=== PATIENT | female | born 1965 | race Caucasian/White ===

== ENCOUNTER 2019-12-11 09:15 | Outpatient (REF) | payer OTHER, SELFPAY ==
[2019-12-17 11:31] LABS: FIT1 NEGATIVE (NEGATIVE); FIT2 NEGATIVE (NEGATIVE)
[2019-12-17 11:32] LABS: FIT Int Ctl YES
== END 2019-12-11 09:16 ==
LOC: HO.LNP 09:15
PROVIDERS: Visit Provider Internal Medicine Gastroenterology
DX: Z12.11 Encounter for screening for malignant neoplasm of colon (principal)
CPT/HCPCS: 82274

== ENCOUNTER 2019-12-17 08:47 | Outpatient (REF) | payer OTHER, SELFPAY ==
--- NOTE | 2019-12-17 09:01 | US_ITS ---
EXAMINATION: US ABDOMEN COMPLETE CLINICAL INFORMATION: Elevated serum ALT levels. COMPARISON: None. TECHNIQUE: Real-time imaging of the abdominal viscera. FINDINGS: PANCREAS: The head and the body of pancreas is homogeneous in echotexture. The tail is obscured by overlying gas. ABDOMINAL AORTA: The proximal, mid, and distal segments are normal in caliber. INFERIOR VENA CAVA: Visualized portions are normal. LIVER: The liver is normal in size. The liver contour is normal. Parenchymal echogenicity is increased. No focal hepatic lesion. There is no intrahepatic biliary duct dilatation seen. GALLBLADDER: Normal. The gallbladder is physiologically distended without evidence of stones, sludge, polyps, wall thickening or pericholecystic fluid. COMMON BILE DUCT: Normal in caliber measuring 0.4 cm in diameter. RIGHT KIDNEY: Normal. No hydronephrosis. No renal calculi or focal parenchymal lesions. The kidney measures 13.5 cm in maximum dimension. LEFT KIDNEY: Normal. No hydronephrosis. No renal calculi or focal parenchymal lesions. The kidney measures 12.1 cm in maximum dimension. SPLEEN: Normal. The spleen measures 9.9 cm in maximum dimension. FREE FLUID: None. US/US abdomen complete IMPRESSION: Diffuse hepatic echogenicity without any focal lesion. The rest of the abdominal ultrasound is unremarkable.
--- NOTE | 2019-12-17 14:56 | MM_ITS ---
EXAMINATION: MM SCREENING DIGITAL BREAST TOMOSYNTHESIS, BILATERAL CLINICAL INFORMATION: Screening. Asymptomatic. The lifetime risk of breast cancer based on the Tyrer-Cuzick Model is 7.1%. COMPARISON: Mammography: August 02, 2018 and studies dating back to December 09, 2013 TECHNIQUE: Digital breast tomosynthesis is performed in both the craniocaudal and mediolateral oblique views along with computer-aided detection (CAD). Synthesized 2D images are generated from the tomosynthesis. FINDINGS: The breasts are almost entirely fatty (ACR BI-RADS breast composition Category a). There are no significant masses, abnormal calcifications, or other abnormalities. MM/MM tomosynthesis screening BI IMPRESSION: There are no significant changes from prior study. ASSESSMENT: BI-RADS 1: Negative RECOMMENDATION: Routine annual mammography screening. This patient's information was entered into a reminder system with a target due date for their next mammogram.
== END 2019-12-17 08:48 | disposition home or self-care (01) ==
LOC: HO.US 08:47
PROVIDERS: PCP Internal Medicine; Visit Provider Internal Medicine Gastroenterology
DX: R74.01 Elevation of levels of liver transaminase levels (principal)
CPT/HCPCS: 76700; 77063; 77067

== ENCOUNTER → 2019-12-25 13:33 | Outpatient (BNVA) | payer OTHER, SELFPAY | PROVIDERS: PCP Internal Medicine; Referring Provider Internal Medicine; Visit Provider Internal Medicine Gastroenterology | DX: Z76.89 Persons encountering health services in other specified circumstances (principal) ==

== ENCOUNTER 2020-05-22 08:00 | Outpatient (RCR) | payer OTHER, SELFPAY ==
--- NOTE | 2020-03-16 08:36 | MHC.PT.EP ---
[facility] [place] Office [place] Office [place] Office [address] Elvira Concepcion [address] [phone] F: [phone] F: [phone] F: [phone] F: [phone] Physical Therapy Plan of Care Date of Evaluation: 03/16/20 Date of Surgery: None Diagnosis: Strain of Left Thigh Assessment: Pt is a 54 y.o.f with chief complaint of (L) anterior hip pain with pain radiating into knee and buttock. Pt reports prior incidence of similar pain that improved with no physical therapy in past. Pt presents today with decreased hip ROM, strength deficits, postural/gait abnormalities, TTP L anterior/posterior hip, and (+) special testing. Pt abnormalities during gait and functional movement are likely due to weakness within gluteal musculature and tightness of hip flexors. Pt sxs are consistent with muscular strain further impacted by hip weakness causing pain with repetitive and functional movements. 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 Manual therapy to restore motion and function. Therapeutic exercise to improve strength and flexibility. Neuromuscular re-education for posture and balance. Therapeutic activities to return to functional activities of daily living. Electronically signed by: Lulú Pena PT Please sign and return to therapist. Thank you for your referral.
--- NOTE | 2020-05-28 12:23 | MHC.PT.DC ---
[facility] [place] Office [place] Office [place] Office [address] Elvira Concepcion [address] [facility] [phone] F: [phone] F: [phone] F: [phone] F: [phone] Physical Therapy Discharge Report Diagnosis: Strain of Left Thigh Date of Surgery: None Date of Evaluation: 03/16/20 Date of Discharge: 05/28/20 Treatments to Date: 19 Cancellations to Date: 0 No Shows to Date: 0 Discharge Status: Achieved Goals Improved Function Independent with HEP Discharge Summary: Pt progressed well over the course of skilled PT making progress on impairments and functional limitations resulting in an improved quality of life. Pt is I with HEP and appropriate to d/c to HEP at this time. LEFS 61/80 Electronically signed by: Lulú Pena PT Please sign and return to therapist. Thank you for your referral.
== END 2020-05-28 12:24 | disposition home or self-care (01) ==
LOC: HO.PTCHIC 08:00
PROVIDERS: PCP Internal Medicine; Visit Provider Internal Medicine
DX: S76.212D Strain of adductor muscle, fascia and tendon of left thigh, subsequent encounter (principal)
CPT/HCPCS: 97110; 97112; 97140; 97161; 97530

== ENCOUNTER 2020-06-02 14:20 | Outpatient (REF) | payer OTHER, SELFPAY ==
--- NOTE | ~2020-06-02 | XR_ITS ---
EXAMINATION: XR BILATERAL HIPS WITH AP PELVIS CLINICAL INFORMATION: Bilateral hip pain. COMPARISON: None TECHNIQUE: AP view of the pelvis as well as AP and frog-leg lateral views of the right and left hip. FINDINGS: No acute fracture or dislocation. Mild bilateral hip joint space narrowing with small marginal osteophytes. No osseous erosion. Phleboliths within the pelvis. XR/XR hip BI w [id number] IMPRESSION: Mild right and left hip osteoarthritis.
== END 2020-06-02 14:21 | disposition home or self-care (01) ==
LOC: HO.HMGCX 14:20
PROVIDERS: PCP Internal Medicine; Visit Provider Internal Medicine
DX: M25.551 Pain in right hip (principal); M25.552 Pain in left hip
CPT/HCPCS: 73521

== ENCOUNTER 2020-06-04 07:52 | Outpatient (REF) | payer OTHER, SELFPAY ==
[2020-06-04 11:48] LABS: Alanine Aminotransferase 27 U/L (0-31); Anion Gap 13 (12-20); Aspartate Amino Transferase 18 U/L (5-31); Blood Urea Nitrogen 17 mg/dL (9-16); Calcium 9.2 mg/dL (8.4-10.2); Carbon Dioxide 27 mmol/L (22-29); Chloride 105 mmol/L (96-108); Cholesterol 210 mg/dL; Estimated Glomerular Filt Rate > 60; Glucose Fasting 105 mg/dL (60-99); HDL Cholesterol 60 mg/dL; LDL Cholesterol Calculated 121 mg/dl; Potassium 4.5 mmol/L (3.3-5.1); Sodium 140 mmol/L (135-145); Triglycerides 145 mg/dL
[2020-06-04 12:03] LABS: TSH reflex Free T4 1.32 uIU/mL (0.32-4.0); Vitamin D 25-OH Total 28.6 ng/mL (>30)
== END 2020-06-04 07:53 | disposition home or self-care (01) ==
LOC: HO.HMGCLDS 07:52
PROVIDERS: PCP Internal Medicine; Visit Provider Internal Medicine
DX: Z00.01 Encounter for general adult medical examination with abnormal findings (principal); F32.9 Major depressive disorder, single episode, unspecified; I10 Essential (primary) hypertension; E89.40 Asymptomatic postprocedural ovarian failure
CPT/HCPCS: 36415; 80048; 80061; 82306; 84443; 84450; 84460

== ENCOUNTER → 2020-12-21 13:13 | Outpatient (BNVA) | payer OTHER, SELFPAY | PROVIDERS: PCP Internal Medicine; Referring Provider Internal Medicine; Visit Provider Nurse Practitioner ==

== ENCOUNTER 2021-01-26 07:58 | Outpatient (REF) | payer OTHER, SELFPAY ==
--- NOTE | ~2021-01-26 | US_ITS ---
EXAMINATION: US ABDOMEN COMPLETE CLINICAL INFORMATION: Left lower quadrant pain, elevated ALT; gastroesophageal reflux disease.. COMPARISON: Ultrasound abdomen complete dated 12/17/2019. TECHNIQUE: Real-time imaging of the abdominal viscera. FINDINGS: PANCREAS: Normal. The visualized pancreatic head and body are normal in appearance. The remainder of the pancreas is obscured from visualization by the overlying bowel gas. ABDOMINAL AORTA: The proximal, mid, and distal segments are normal in caliber. INFERIOR VENA CAVA: Visualized portions are normal. LIVER: There is diffuse increased liver parenchymal echogenicity. No focal hepatic mass is seen. The liver is normal in size and contour. No biliary ductal dilatation. GALLBLADDER: Normal. The gallbladder is physiologically distended without evidence of stones, sludge, polyps, wall thickening or pericholecystic fluid. COMMON BILE DUCT: Normal in caliber measuring 0.4 cm in diameter. RIGHT KIDNEY: Normal. No hydronephrosis. No renal calculi or focal parenchymal lesions. The kidney measures 12.6 cm in maximum dimension. LEFT KIDNEY: Normal. No hydronephrosis. No renal calculi or focal parenchymal lesions. The kidney measures 12.2 cm in maximum dimension. SPLEEN: Normal. The spleen measures 9.5 cm in maximum dimension. FREE FLUID: None. US/US abdomen complete IMPRESSION: There is generalized increase in hepatic echotexture, consistent with fatty infiltration or hepatocellular disease. Please correlate clinically. No focal hepatic mass or intrahepatic biliary dilatation is seen.
== END 2021-01-26 07:59 | disposition home or self-care (01) ==
LOC: HO.US 07:58
PROVIDERS: PCP Internal Medicine; Visit Provider Nurse Practitioner
DX: R10.32 Left lower quadrant pain (principal)
CPT/HCPCS: 76700

== ENCOUNTER → 2021-02-02 14:39 | Outpatient (BNVA) | payer OTHER, SELFPAY | PROVIDERS: PCP Internal Medicine; Referring Provider Internal Medicine; Visit Provider Nurse Practitioner ==

== ENCOUNTER 2021-06-16 11:32 | Outpatient (REF) | payer OTHER, SELFPAY ==
--- NOTE | ~2021-06-16 | MM_ITS ---
EXAMINATION: MM SCREENING DIGITAL BREAST TOMOSYNTHESIS, BILATERAL CLINICAL INFORMATION: Screening. Asymptomatic. The lifetime risk of breast cancer based on the Tyrer-Cuzick Model is 8%. COMPARISON: Mammography: 12/17/2019, 08/02/2018, 12/02/2015, 12/11/2013, 12/09/2013 TECHNIQUE: Digital breast tomosynthesis is performed in both the craniocaudal and mediolateral oblique views along with computer-aided detection (CAD). Synthesized 2D images are generated from the tomosynthesis. FINDINGS: The breasts are almost entirely fatty (ACR BI-RADS breast composition Category a). Background stromal and fibroglandular densities are stable. No mass or architectural abnormality or abnormal calcifications. There is a small dermal lesion again seen overlying the inferior right breast on MLO view, previously marked with dermal marker on 12/11/2013. Neither breast shows abnormal calcifications. The axilla are unremarkable. MM/MM tomosynthesis screening BI IMPRESSION: -No mammographic evidence of malignancy. -Old dermal lesion overlying anterior inferior right breast on MLO view. ASSESSMENT: BI-RADS 2: Benign RECOMMENDATION: Routine annual mammography screening. This patient's information was entered into a reminder system with a target due date for their next mammogram.
== END 2021-06-16 11:33 | disposition home or self-care (01) ==
LOC: HO.MAMMO 11:32
PROVIDERS: Visit Provider Internal Medicine
DX: Z12.31 Encounter for screening mammogram for malignant neoplasm of breast (principal)
CPT/HCPCS: 77063; 77067

== ENCOUNTER 2021-07-07 13:55 | Outpatient (REF) | payer OTHER, SELFPAY ==
[2021-07-07 14:41] LABS: Influenza A PCR NEGATIVE (Negative); Influenza B PCR NEGATIVE (Negative); Resp Syncy Virus RNA Qual PCR NEGATIVE (Negative); SARS COV2 PCR INHOUSE NEGATIVE (Negative)
== END 2021-07-07 13:56 | disposition home or self-care (01) ==
LOC: HO.LNP 13:55
PROVIDERS: Visit Provider Emergency Medicine
DX: Z20.822 Contact with and (suspected) exposure to COVID-19 (principal); R68.89 Other general symptoms and signs
CPT/HCPCS: 0241U

== ENCOUNTER 2021-07-19 08:33 | Emergency (ER) | payer OTHER, SELFPAY ==
--- NOTE | ~2021-07-19 | CT_ITS ---
EXAMINATION: CT SOFT TISSUE NECK WITHOUT CONTRAST CLINICAL INFORMATION: Inability to swallow while. Pain COMPARISON: None TECHNIQUE: Helical imaging was performed in the axial plane with generation of coronal and sagittal reformatted images. This CT examination was performed using dose optimization techniques as appropriate, variously including the following: *Automated exposure control *Adjustment of mA and/or kV according to patient size (this includes techniques or standardized protocols for targeted exams where dose is matched to indication/reason for exam; i.e. extremities or head) *Use of iterative reconstruction technique DLP: 751 mGy-cm FINDINGS: The oropharynx and oral cavity exam is limited in evaluation secondary to the exam due to dental amalgam related artifact. There is a soft tissue mass or thickening of the right tonsils with no hypodensity seen to suspect any abscess. The mass measures approximately 2.8 x 1.8 cm on axial image 40/2. The mass extends to the base of the tongue with lack of separation. The peritonsillar fat planes are maintained normal. However limited The left tonsillar pillar is normal. There are numerous lymph nodes seen throughout the anterior and posterior neck the largest lymph node measures 1.5 cm level 3 right neck and 1.5 cm left neck on coronal image 46/4 The parotid glands are homogeneous in attenuation. The submandibular glands are normal. No contour abnormality or pathologic enhancement is seen within the oral cavity or pharyngeal mucosal space. The laryngeal structures are normal. The parapharyngeal fat is preserved. The carotid sheath vasculature opacify normally. No extra mucosal soft tissue mass or fluid collection is seen. No retropharyngeal fluid collection is seen. The thyroid gland is normal. The superior mediastinum is unremarkable. The lung apices are clear. The mastoid air cells and visualized portions of the paranasal sinuses are well-aerated. The temporomandibular joints are normal. No periapical disease is identified. No osseous abnormalities are seen. The imaged portions of the brain parenchyma are unremarkable. CT/CT soft tissue neck wo con IMPRESSION: There is a soft tissue mass in the right tonsillar pillar and the right base of the tongue inseparable. Exact origin not known. There is however no hypodensity or gas seen to suspect any peritonsillar abscess. There is bilateral numerous neck lymph nodes level 2 and 3 which appear abnormal. Consider ENT workup and if clinically indicated an MRI for further evaluation. Rest of the visualized soft tissue neck is unremarkable.
[2021-07-19 08:36] VITALS: BP 154/76; PULSE 88; RESP 20; TEMP 36.6; O2SAT 96; BMI 43.0
--- NOTE | 2021-07-19 08:44 | ED.GENADULT ---
HPI - General Adult General Chief complaint: General Medical Stated complaint: sore throat, lock jaw Time Seen by Provider: 07/19/21 08:44 Source: patient Mode of arrival: ambulatory Limitations: no limitations History of Present Illness HPI narrative: Patient is a 55 year old female presenting to the emergency department today with a sore throat and jaw. Patient states that for the last few weeks she has had increased difficulty swallowing, a sore throat, and a sore jaw. Patient states that at baseline, she has a history of dysphasia but it seems to be worse lately. Patient states that she does have a GI provider but she has not seen his for this new issue. Patient states she was seen at an urgent care for this a week ago and was given a steroid and a muscle relaxer but neither seemed to help. Patient denies any dizziness, lightheadedness, abdominal pain, nausea, vomiting, fever, chills, blurry vision, double vision, loss of vision, chest pain, difficulty breathing, shortness of breath, back pain, night sweats, pain with urination, increased urinary frequency, increased urinary urgency, blood in her urine or stool, syncope or a near syncopal episode, recent trauma or falls, bowel incontinence, bladder incontinence, bowel retention, bladder retention, or any other complaints at this time. Onset (ago): week(s) Radiation: non-radiation Severity: mild Severity scale (1-10): 2 Quality: dull Pain Consistency: constant Relieving factors: none Exacerbating factors: none Associated symptoms: denies other symptoms Treatments prior to arrival: none Related Data Home Medications Medication Instructions Recorded Confirmed aspirin 81 mg tablet,delayed 81 mg PO DAILY 12/25/19 05/26/20 release COVID-19 vacc,mRNA([employer])(PF) 30 0.3 ml IM DIRECTED 02/25/20 05/26/20 mcg/0.3 mL IM susp (purple) escitalopram oxalate 10 mg tablet 20 mg PO DAILY tab 05/26/20 05/26/20 cholecalciferol (vitamin D3) 125 125 mcg PO DAILY 12/21/20 mcg (5,000 unit) capsule Previous Rx's Medication Instructions Recorded trazodone 50 mg tablet 50 mg PO BEDTIME PRN #30 tab 03/16/20 famotidine 10 mg tablet (Acid 40 mg PO BEDTIME 30 Days #120 tab 12/21/20 Digital Sales Representative (famotidine)) amlodipine 2.5 mg tablet 2.5 mg PO DAILY #90 tab 01/14/21 lisinopril 10 mg tablet 10 mg PO DAILY #90 tab 02/15/21 diclofenac sodium 1 % topical gel 2 g TOPICAL QID #100 g 06/02/21 azithromycin 250 mg tablet See Rx Instructions PO .COMPLEX #6 07/14/21 tab meloxicam 15 mg tablet 15 mg PO DAILY #14 tab 07/14/21 Allergies Allergy/AdvReac Type Severity Reaction Status Date / Time amoxicillin [AMOXICILLIN] Allergy Intermediate VOMITING/DIARRHEA, Verified 07/14/21 14:08 diarrhea/vomiting latex [LATEX] Allergy Intermediate HIVES Verified 07/14/21 14:08 sulfamethoxazole Allergy Intermediate HIVES Verified 07/14/21 14:08 [From BACTRIM] Doxycycline Hyclate Allergy Unknown hives and Verified 07/14/21 14:08 tingling Review of Systems Constitutional: Constitutional: Reports no additional constitutional complaints, Denies chills, Denies fever(s) and Denies night sweats Eyes: Eyes: Reports no additional eye complaints, Denies blurry vision, Denies change in vision, Denies diplopia, Denies eye discharge, Denies loss of vision and Denies eye pain ENT: Denies dizziness and Reports sore throat Comments: jaw pain Cardiovascular: Cardiovascular: Reports no additional cardiovascular complaints, Denies chest pain, Denies lightheadedness, Denies Loss of Consciousness and Denies dyspnea Respiratory: Respiratory: Reports no additional respiratory complaints and Denies dyspnea Gastrointestinal: Gastrointestinal: Reports no additional gastrointestinal complaints, Denies abdominal pain, Denies melena, Denies hematochezia, Denies change in bowel habits and Denies change in stool character Genitourinary: Genitourinary: Denies hematuria, Denies urinary frequency, Denies dysuria, Denies urinary incontinence, Denies urinary hesitancy and Denies urinary urgency Musculoskeletal: Musculoskeletal: Reports no additional musculoskeletal complaints, Denies numbness and Denies tingling Neurologic: Denies dizziness, Denies loss of vision, Denies numbness and Denies tingling Psychiatric: Psychiatric: Reports no additional psychiatric complaints Endocrine: Endocrine: Reports no additional endocrine complaints Hematologic/Lymphatic: Hematologic/Lymphatic: Reports no additional hematologic/lymphatic complaints Allergic/Immunologic: Allergic/Immunologic: Reports no additional allergic/immunologic complaints PMFSH Past Medical History Attestation statement: The following information was validated with the patient. Source: old records reviewed Medical History COVID-19 Depression Depression, major, recurrent, in partial remission Essential hypertension Strain of left inguinal region Surgical menopause Surgical History History of History of colonoscopy History of hysterectomy Status post endometrial ablation Family History Family History Father Hx of diabetes insipidus Hx of skin cancer, basal cell Mental health disorder Mother Family history of high blood pressure Son Substance use disorder Mental health disorder Maternal Grandmother No problems noted. Maternal Uncle Mental health disorder Social History Social History Housing: House Alcohol intake: current Alcohol intake frequency: holidays/special occasions only Alcohol type: beer Patient Tobacco Use Status: Never used Tobacco e-Cigarette/Vaping Use: Never Used Advance Directives: No Advance Directives Information Provided: Yes service: No Current occupational status: employed Cognitive needs: No Hearing needs: No Vision needs: No Physical Exam ED Vital Signs: Vital Signs - 24 hr 07/19/21 08:36 Temperature 97.9 F Pulse Rate 88 Respiratory Rate 20 Blood Pressure 154/76 H Pulse Oximetry 96 BMI result Body Mass Index 43.0 Const General: cooperative, no acute distress, alert and awake Nutritional Appearance: well nourished Orientation/consciousness: patient oriented x3 Limitations: no limitations [facility] Head: Yes normal to inspection and Yes atraumatic Ears: hearing grossly normal bilaterally and external ears normal General nose exam: Normal external nose present, no nasal discharge noted and no epistaxis Face and sinus: Yes normal facial exam, No abrasion and No laceration Mouth: Normal oral and palatal mucosa present, no drooling and no muffled voice Eyes General: appearance normal, both eyes and all related structures Periorbital: periorbital findings normal Eyelids: Yes eyelids normal Conjunctivae: conjunctivae normal Pupils: Equal, round and reactive pupils present EOM: EOMs intact bilaterally Neck Neck: Yes normal visual inspection, Yes full ROM and Yes no lymphadenopathy Chest Chest palpation & inspection: normal inspection of the chest Resp Effort & Inspection: normal respiratory effort and able to speak in complete sentences Auscultation: clear to auscultation bilaterally Cardio Rate: regular rate Rhythm: regular rhythm GI Inspection: Yes normal to inspection Neuro General: patient oriented x3 and moves all extremities Cranial nerves: Yes Equal, round and reactive pupils present Cognition (Neuro): normal cognition Motor exam (neuro): 5/5 motor strength present throughout Sensory Exam: Normal double simultaneous stimulation for sensation Coordination: [id number] test normal Extrem General: Yes normal to inspection, Yes full ROM and Yes capillary refill normal Psych Appearance: grossly normal Mental Status: mental status grossly normal Affect: normal affect Attitude: cooperative Thought process: Normal thought process present Thought content: Normal thought content present Insight: Good insight present (Psych) Medical Decision Making MDM Narrative Medical decision making narrative: Patient is a 55 year old female presenting to the emergency department today with jaw pain and decreased ability to swallow. Patient's physical exam was unremarkable. Patient's CT soft tissue of the neck showed a mass at the base of the tongue. Patient had a patent, intact, airway and was able to tolerate PO fluids while in the department. I explained my physical exam findings as well as all test results to the patient. I answered all questions asked by the patient. I stressed the importance of the patient taking her medication as prescribed. I stressed the importance of the patient following up with her] primary care provider and an ENT specialist, as soon as possible. I stressed the importance of the patient returning to the emergency department immediately if her symptoms were to worsen or if she were to develop any dizziness, shortness of breath, difficulty breathing, chest pain, blurry vision, loss of vision, nausea, vomiting, abdominal pain, fever, chills, back pain, or any other complaints. Patient verbalized agreement and understanding with this treatment plan and discharge. Differential Diagnosis Differential Diagnosis: esophageal mass, tongue mass, chronic dysphasia Medical Records Medical records reviewed: Yes I reviewed the patient's medical records. Imaging Data CT Soft tissue neck: Attestation: I personally reviewed and interpreted this imaging study as follows: My impression: Mass at the base of the tongue. Radiologist's impression: EXAMINATION: CT SOFT TISSUE NECK WITHOUT CONTRAST CLINICAL INFORMATION: Inability to swallow while. Pain? COMPARISON: None? TECHNIQUE: Helical imaging was performed in the axial plane with generation of coronal and sagittal reformatted images. This CT examination was performed using dose optimization techniques as appropriate, variously including the following: *Automated exposure control *Adjustment of mA and/or kV according to patient size (this includes techniques or standardized protocols for targeted exams where dose is matched to indication/reason for exam; i.e. extremities or head) *Use of iterative reconstruction technique DLP: 751 mGy-cm FINDINGS: The oropharynx and oral cavity exam is limited in evaluation secondary to the exam due to dental amalgam related artifact. There is a soft tissue mass or thickening of the right tonsils with no hypodensity seen to suspect any abscess. The mass measures approximately 2.8 x 1.8 cm on axial image 40/2. The mass extends to the base of the tongue with lack of separation. The peritonsillar fat planes are maintained normal. However limited The left tonsillar pillar is normal. There are numerous lymph nodes seen throughout the anterior and posterior neck the largest lymph node measures 1.5 cm level 3 right neck and 1.5 cm left neck on coronal image 46/4 The parotid glands are homogeneous in attenuation. The submandibular glands are normal. No contour abnormality or pathologic enhancement is seen within the oral cavity or pharyngeal mucosal space. The laryngeal structures are normal. The parapharyngeal fat is preserved. The carotid sheath vasculature opacify normally. No extra mucosal soft tissue mass or fluid collection is seen. No retropharyngeal fluid collection is seen. The thyroid gland is normal. The superior mediastinum is unremarkable. The lung apices are clear. The mastoid air cells and visualized portions of the paranasal sinuses are well-aerated. The temporomandibular joints are normal. No periapical disease is identified. No osseous abnormalities are seen. The imaged portions of the brain parenchyma are unremarkable. CT/CT soft tissue neck wo con IMPRESSION: There is a soft tissue mass in the right tonsillar pillar and the right base of the tongue inseparable. Exact origin not known. There is however no hypodensity or gas seen to suspect any peritonsillar abscess. There is bilateral numerous neck lymph nodes level 2 and 3 which appear abnormal. Consider ENT workup and if clinically indicated an MRI for further evaluation. ? Rest of the visualized soft tissue neck is unremarkable. Dictated By: Sb Mckeon MD Signed By: Electronically signed by Sb Mckeon MD 07/19/21 0937 Discharge Plan Discharge Clinical Impression: Mass of tongue Patient Disposition: Home, Self-Care Additional Instructions: Follow up with your primary care provider. Follow up with an ENT specialist, as soon as possible. Return to the emergency department immediately if your symptoms worsen or if you develop any dizziness, shortness of breath, difficulty breathing, chest pain, blurry vision, loss of vision, nausea, vomiting, abdominal pain, fever, chills, back pain, or any other complaints. Prescriptions: No Action trazodone 50 mg tablet 50 mg PO BEDTIME PRN (Reason: for insomnia) Qty: 30 0RF amlodipine 2.5 mg tablet 2.5 mg PO DAILY Qty: 90 3RF lisinopril 10 mg tablet 10 mg PO DAILY Qty: 90 3RF Pfizer COVID-19 Vaccine (EUA) 30 mcg/0.3 mL suspension for reconstitution 0.3 ml IM DIRECTED 0RF escitalopram oxalate 10 mg tablet 20 mg PO DAILY 0RF diclofenac sodium 1 % gel 2 g topical QID Qty: 100 1RF Rx Instructions: apply to single elbow, wrist or hand; for hand includes palm/fingers/back of hand azithromycin 250 mg tablet See Rx Instructions PO .COMPLEX Qty: 6 0RF Rx Instructions: take 500 mg today (day 1), then 250 mg for 4 days (days 2-5) PO meloxicam 15 mg tablet 15 mg PO DAILY Qty: 14 0RF aspirin 81 mg tablet,delayed release (DR/EC) 81 mg PO DAILY 0RF cholecalciferol (vitamin D3) 125 mcg (5,000 unit) capsule 125 mcg PO DAILY 0RF famotidine [Acid Digital Sales Representative (famotidine)] 10 mg tablet 40 mg PO BEDTIME 30 Days Qty: 120 6RF Referrals: [facility] [Provider Group] Shefali Billings MD [Primary Care Provider] - Stand Alone Forms: Work/School Release Interventions: ED Discharge Assessment Last Done: 07/19/21 10:04 Discharge Date/Time: 07/19/21 10:05 Print Language: Swiss
== END 2021-07-19 10:05 | disposition home or self-care (01) ==
PROVIDERS: Emergency Provider Student in an Organized Health Care Education/Training Program; PCP Internal Medicine
DX: K14.8 Other diseases of tongue (principal); I10 Essential (primary) hypertension; Z79.82 Long term (current) use of aspirin
CPT/HCPCS: 70490; 99282; 99284

== ENCOUNTER 2021-08-13 08:00 | Outpatient (RCR) | payer OTHER, SELFPAY ==
--- NOTE | 2021-07-15 13:21 | MHC.PT.EP ---
[facility] [place] Office [place] Office [place] Office [address] Elvira Concepcion [address] [phone] F: [phone] F: [phone] F: [phone] F: [phone] Physical Therapy Plan of Care Date of Evaluation: Date of Surgery: Diagnosis: Unspecified strain of L ankle/ foot. Assessment: Pt is a 55 y/o female referred to PT for eval and treat of unspecified sprain of L ankle who presents with signs and sx consistent with L ankle dysfunction resulting in decreased tolerance and ability to perform ambulatory and standing tasks for duration, performing fitness activities as well as descending stairs, negotiating uneven terrain and inclines, and ache at night secondary to decreased B hip and L ankle strength, mild L ankle inversion hypermobility as well as L > R ankle pronation, gait abnormality and pain. Pt is deemed an appropriate candidate to receive skilled PT in order to address her physical limitations to improve her functional ability. Frequency and Duration: The patient will be seen 2 x / wk x 5 wks. Short Term Goals: Initiate HEP with evidence of compliance. improve baseline pain to < 4/10; initial: 6/10. Vp Compliance Goals: I with HEP. Descends stairs with reciprocal fashion; initial: inconsistent Pt will be able to walk 1 mile with managed Sx; initial: moderate difficulty. Improve L ankle inversion MMT by at least 1/2 MMT grade. Treatment Plan: Modalities to reduce pain, spasms and effusion. Manual therapy to restore motion and function. Therapeutic exercise to improve strength and flexibility. Neuromuscular re-education for posture and balance. Therapeutic activities to return to functional activities of daily living. Electronically signed by: Manuel Martinez PT. Please sign and return to therapist. Thank you for your referral.
--- NOTE | 2021-08-13 13:37 | MHC.PT.DC ---
[facility] [place] Office [place] Office [place] Office [address] Elvira Concepcion [address] [phone] F: [phone] F: [phone] F: [phone] F: [phone] Physical Therapy Discharge Report Diagnosis: Unspecified strain of L ankle/ foot. Date of Surgery: Date of Evaluation: 07/15/21 Date of Discharge: Treatments to Date: 9 Cancellations to Date: No Shows to Date: Discharge Status: Discharge Summary: Bernice has been an active participant in her therapy in and out of the clinic. She persists with mild soreness at the end of a long day though has met her therapeutic goals, is I with her HEP and in agreement with DC today. Electronically signed by: Please sign and return to therapist. Thank you for your referral.
== END 2021-08-13 13:37 | disposition home or self-care (01) ==
LOC: HO.PTCHIC 08:00
PROVIDERS: PCP Internal Medicine; Visit Provider Internal Medicine
DX: S96.912A Strain of unspecified muscle and tendon at ankle and foot level, left foot, initial encounter (principal)
CPT/HCPCS: 97110; 97112; 97140; 97161

== ENCOUNTER 2021-11-07 15:16 | Emergency (ER) | payer OTHER, SELFPAY ==
[2021-11-07 17:10] VITALS: BP 188/72; PULSE 83; RESP 18; TEMP 37.2; O2SAT 98; BMI 42.0
[2021-11-07 19:06] LABS: MANUAL DIFF FLAG NO
[2021-11-07 19:08] LABS: Basophils Absolute Auto 0.1 X10*3/uL (0.0-0.2); Basophils Percent Auto 0.9 % (0-2); Eosinophils Absolute Auto 0.3 X10*3/uL (0.0-0.4); Eosinophils Percent Auto 2.8 % (0-4); Hematocrit 40.8 % (37.0-47.0); Hemoglobin 13.3 g/dl (12.0-16.0); Imm Gran Abs Auto 0.04 X10*3/uL (0.00-0.03); Imm Gran Pct Auto 0.5 % (0.0-0.4); Lymphocytes Absolute Auto 2.5 X10*3/uL (1.2-4.9); Lymphocytes Percent Auto 27.8 % (20-40); Mean Corpuscular HGB Conc 32.6 g/dl (31.0-35.0); Mean Corpuscular Hemoglobin 29.3 pg (27.0-33.0); Mean Corpuscular Volume 89.9 fL (80.0-98.0); Monocytes Absolute Auto 0.7 X10*3/uL (0.1-1.2); Monocytes Percent Auto 7.7 % (2-11); Neutrophils Absolute Auto 5.3 x10*3/uL (2.0-8.3); Neutrophils Percent Auto 60.3 % (45-73); Platelet Count 362 X10*3/uL (160-400); Red Blood Count 4.54 X10*6/uL (4.20-5.50); Red Cell Distribution Width 13.5 % (11.0-16.0); White Blood Count 8.8 X10*3/uL (4.8-10.8)
[2021-11-07 19:22] LABS: Alanine Aminotransferase 32 U/L (0-31); Albumin Level 4.6 g/dL (3.5-5.0); Alkaline Phosphatase 97 U/L (39-117); Anion Gap 17 (12-20); Aspartate Amino Transferase 21 U/L (5-31); Bilirubin Total 0.4 mg/dL (0.0-1.0); Blood Urea Nitrogen 15 mg/dL (9-16); Calcium 9.9 mg/dL (8.4-10.2); Carbon Dioxide 24 mmol/L (22-29); Chloride 103 mmol/L (96-108); Creatinine Clr Calc Pharmacy 92.1; Estimated Glomerular Filt Rate > 60; Glucose Random 123 mg/dL (60-115); Potassium 4.2 mmol/L (3.3-5.1); Sodium 140 mmol/L (135-145); Total Protein 7.4 g/dL (6.5-8.0)
[2021-11-07 19:27] LABS: Troponin-I High Sensitivity < 3.5 ng/L (<3.5-17.0)
--- NOTE | 2021-11-08 02:53 | ED_ITS ---
HPI - General Adult General Chief complaint: Abdominal Pain Stated complaint: Mid back pain Time Seen by Provider: 11/07/21 17:13 Source: patient Mode of arrival: ambulatory History of Present Illness HPI narrative: 56-year-old female presents with complaints of mid right back pain that started Monday morning it is sharp in nature and radiates around in a dermatomal distribution and she states that she has had shingles previously and the presentation was similar to this. She denies any fever or chills. Related Data Home Medications Medication Instructions Recorded Confirmed aspirin 81 mg tablet,delayed 81 mg PO DAILY 12/25/19 07/20/21 release cholecalciferol (vitamin D3) 125 125 mcg PO DAILY 12/21/20 07/20/21 mcg (5,000 unit) capsule betamethasone, augmented 0.05 % appl topical BID 08/03/21 topical cream escitalopram oxalate 20 mg tablet 20 mg PO DAILY 08/03/21 Previous Rx's Medication Instructions Recorded trazodone 50 mg tablet 50 mg PO BEDTIME PRN for insomnia 03/16/20 #30 tabs amlodipine 2.5 mg tablet 2.5 mg PO DAILY #90 tabs 01/14/21 lisinopril 10 mg tablet 10 mg PO DAILY #90 tabs 02/15/21 omeprazole 40 mg capsule,delayed 40 mg PO DAILY 30 days #30 caps 08/03/21 release diclofenac sodium 1 % topical gel 2 g topical QID ankle pain #100 08/05/21 grams acyclovir 800 mg tablet 800 mg PO 5XD 7 days #35 tabs 11/08/21 cyclobenzaprine 5 mg tablet 5 mg PO BEDTIME PRN muscle spasm 11/08/21 #4 tabs gabapentin 300 mg capsule 300 mg PO DAILY #2 caps 11/08/21 Allergies Allergy/AdvReac Type Severity Reaction Status Date / Time amoxicillin [AMOXICILLIN] Allergy Intermediate VOMITING/DIARRHEA, Verified 11/07/21 17:10 diarrhea/vomiting latex [LATEX] Allergy Intermediate HIVES Verified 11/07/21 17:10 sulfamethoxazole Allergy Intermediate HIVES Verified 11/07/21 17:10 [From BACTRIM] Doxycycline Hyclate Allergy Unknown hives and Verified 11/07/21 17:10 tingling Review of Systems Review of Systems: Pertinent positives and negatives as stated in HPI 10 point review of systems is otherwise negative. PMFSH Past Medical History Source: nursing notes reviewed Medical History COVID-19 Depression, major, recurrent, in partial remission Essential hypertension Mass of tongue Strain of left inguinal region Surgical menopause Surgical History History of History of colonoscopy History of hysterectomy Status post endometrial ablation Family History Family History Father Hx of diabetes insipidus Hx of skin cancer, basal cell Mental health disorder Mother Family history of high blood pressure Son Substance use disorder Mental health disorder Maternal Grandmother No problems noted. Maternal Uncle Mental health disorder Social History Social History Housing: House Alcohol intake: current Alcohol intake frequency: holidays/special occasions only Alcohol type: beer Patient Tobacco Use Status: Never used Tobacco e-Cigarette/Vaping Use: Never Used Advance Directives: No Advance Directives Information Provided: Yes service: No Current occupational status: employed Cognitive needs: No Hearing needs: No Vision needs: No Physical Exam ED Vital Signs: Vital Signs - 24 hr 11/07/21 17:10 Temperature 98.9 F Pulse Rate 83 Respiratory Rate 18 Blood Pressure 188/72 H Pulse Oximetry 98 Oxygen Delivery Method Room Air BMI result Body Mass Index 42.0 VITAL SIGNS: Reviewed. GENERAL: Well developed, well nourished, in no acute distress. HEAD: Normocephalic/atraumatic EYES: PERRLA, EOMI EARS: Ext canals without abnormality OROPHARYNX: no oral lesions noted, posterior pharynx clear LUNGS: Normal breath sounds. No adventitious sounds or accessory muscle use. SpO2<98> CARDIOVASCULAR: Regular rate and rhythm without noted murmurs ABDOMEN: Soft, non-tender, non-distended with bowel sounds. MUSCULOSKELETAL: No tenderness, deformities, or effusions noted on gross inspection. BACK: No midline vertebral tenderness, no rash noted, however there is tenderness and warmth on palpation at the infra scapular area. EXTREMITIES: No cyanosis, clubbing or edema. SKIN: Inspection of the skin reveals no rashes NEUROLOGIC: Alert and oriented x 4. Strength and sensation to light touch were grossly intact x 4. Course Course Course Narrative: 56-year-old female with history and clinical presentation consistent with very early herpes zoster or possible muscle spasm. I discussed extensively with the patient the plan which she has agreed to. Patient will be provided with a small number of gabapentin pills for presumed nerve pain, she has been instructed to start taking the antiviral if she sees vesicles appear. If patient does not see vesicles appear she will take nighttime Flexeril for muscle spasm. Medical Decision Making Lab Data Result diagrams: 11/07/21 18:56 11/07/21 18:56 Labs: Lab Results 11/07/21 11/07/21 11/07/21 Range/Units 18:56 18:56 18:56 WBC 8.8 (4.8-10.8) X10*3/uL RBC 4.54 (4.20-5.50) X10*6/uL Hgb 13.3 (12.0-16.0) g/dl Hct 40.8 (37.0-47.0) % MCV 89.9 (80.0-98.0) fL MCH 29.3 (27.0-33.0) pg MCHC 32.6 (31.0-35.0) g/dl RDW 13.5 (11.0-16.0) % Plt Count 362 (160-400) X10*3/uL MPV 9.0 L (9.4-12.3) fL Immature Gran % (Auto) 0.5 H (0.0-0.4) % Neut % (Auto) 60.3 (45-73) % Lymph % (Auto) 27.8 (20-40) % [place] % (Auto) 7.7 (2-11) % Eos % (Auto) 2.8 (0-4) % Baso % (Auto) 0.9 (0-2) % Lymph # (Auto) 2.5 (1.2-4.9) X10*3/uL [place] # (Auto) 0.7 (0.1-1.2) X10*3/uL Eos # (Auto) 0.3 (0.0-0.4) X10*3/uL Baso # (Auto) 0.1 (0.0-0.2) X10*3/uL Abs Immat Gran (auto) 0.04 H (0.00-0.03) X10*3/uL Absolute Neuts (auto) 5.3 (2.0-8.3) x10*3/uL Absolute Nucleated RBC 0.000 (0.0-0.012) X10*3/uL Nucleated RBC % (auto) 0.0 (0.0-0.2) /100WBC Sodium 140 (135-145) mmol/L Potassium 4.2 (3.3-5.1) mmol/L Chloride 103 (96-108) mmol/L Carbon Dioxide 24 (22-29) mmol/L Anion Gap 17 (12-20) BUN 15 (9-16) mg/dL Creatinine 0.73 (0.5-1.4) mg/dL Estim Creat Clear Calc 92.1 Estimated GFR > 60 Random Glucose 123 H (60-115) mg/dL Calcium 9.9 D (8.4-10.2) mg/dL Total Bilirubin 0.4 (0.0-1.0) mg/dL AST 21 (5-31) U/L ALT 32 H (0-31) U/L Alkaline Phosphatase 97 (39-117) U/L Troponin I High Sens < 3.5 (<3.5-17.0) ng/L Total Protein 7.4 (6.5-8.0) g/dL Albumin 4.6 (3.5-5.0) g/dL Discharge Plan Discharge Clinical Impression: Upper back pain on right side Patient Disposition: Home, Self-Care Instructions: Shingles (ED), Muscle Spasm (ED) Additional Instructions: 1. Resume all home medications as prescribed. 2. You have been provided with a prescription for gabapentin and you should take this as directed for 24 hours. You should not continue with this medication if you do not developed vesicles. 3. You have been provided a prescription for acyclovir, you should not fill this prescription until you see the appearance of vesicles. If you do not see vesicles manifest within the next 24-48 hours will presume that this is of muscle spasm and you will not collect the prescription for acyclovir and instead use the cyclobenzaprine prescription. 4. Recommend that you follow-up with your primary care provider for re- evaluation. Return to the ER for worsening symptoms. Prescriptions: New acyclovir 800 mg tablet 800 mg PO 5XD 7 Days Qty: 35 0RF Rx Instructions: space evenly during waking hours cyclobenzaprine 5 mg tablet 5 mg PO BEDTIME PRN (Reason: muscle spasm) Qty: 4 0RF gabapentin 300 mg capsule 300 mg PO DAILY Qty: 2 0RF Rx Instructions: post-herpetic neuralgia ONLY No Action trazodone 50 mg tablet 50 mg PO BEDTIME PRN (Reason: for insomnia) Qty: 30 0RF amlodipine 2.5 mg tablet 2.5 mg PO DAILY Qty: 90 3RF lisinopril 10 mg tablet 10 mg PO DAILY Qty: 90 3RF diclofenac sodium 1 % gel 2 g topical QID Qty: 100 1RF Rx Instructions: apply to single elbow, wrist or hand; for hand includes palm/fingers/back of hand aspirin 81 mg tablet,delayed release (DR/EC) 81 mg PO DAILY cholecalciferol (vitamin D3) 125 mcg (5,000 unit) capsule 125 mcg PO DAILY escitalopram oxalate 20 mg tablet 20 mg PO DAILY betamethasone, augmented 0.05 % cream topical BID omeprazole 40 mg capsule,delayed release(DR/EC) 40 mg PO DAILY 30 Days Qty: 30 6RF Referrals: Shefali Billings MD [Primary Care Provider] - Stand Alone Forms: Work/School Release
== END 2021-11-08 03:51 | disposition home or self-care (01) ==
PROVIDERS: Physician Assistant Medical; Emergency Provider Student in an Organized Health Care Education/Training Program; PCP Internal Medicine
DX: M54.6 Pain in thoracic spine (principal); I10 Essential (primary) hypertension
CPT/HCPCS: 36415; 80053; 84484; 85025; 99283; 99284

== ENCOUNTER 2022-03-03 15:18 | Outpatient (AMB) | payer OTHER, SELFPAY ==
--- NOTE | 2022-03-03 15:26 | MHC.PC.OV ---
Vital Signs 03/03/22 15:27 Height 5 ft Weight 220 lb 6 oz BMI 43.0 BP 118/72 Blood Pressure Location Rt brachial Position Sitting Pulse 72 Pulse Source Pulse Oximeter Pulse Oximetry (%) 96 Oxygen Delivery Method Room Air Intake Visit Reasons: bilateral blocked and chest congestion Intake Note: patient is here for bilateral ear blockage and chest congestion. finished antibiotics about 1 week ago. Allergies amoxicillin [AMOXICILLIN] Allergy (Intermediate, Verified 03/29/23 11:18) VOMITING/DIARRHEA, diarrhea/vomiting latex [LATEX] Allergy (Intermediate, Verified 03/29/23 11:18) HIVES sulfamethoxazole [From BACTRIM] Allergy (Intermediate, Verified 03/29/23 11:18) HIVES Doxycycline Hyclate Allergy (Unknown, Verified 03/29/23 11:18) hives and tingling Medication List - Last Reconciled 04/07/23 by Shefali Billings MD amlodipine 2.5 mg PO DAILY aspirin 81 mg PO DAILY betamethasone, augmented 0.05 % appl topical BID cholecalciferol (vitamin D3) 125 mcg PO DAILY diclofenac sodium 1% 2 grams topical QID gabapentin 100 mg PO Q8H 30 days lisinopril 10 mg PO DAILY meloxicam 15 mg PO DAILY sertraline 50 mg PO DAILY trazodone 50 mg PO BEDTIME PRN Tobacco use date assessed: 03/03/22 HPI bilateral blocked and chest congestion HPI Details 57-year-old lady here today complaining still of persistent ear blockage, accompanied by nasal and chest congestion present now for the last 2 weeks. Initially was seen by another provider and prescribed antibiotics, could not recall the name, which she states has not helped. Denies any accompanying fever, no lightheadedness or sore throat, but has frontal headaches and generalized body aches. [facility] Medical History (Updated 04/07/23 @ 16:54 by Shefali Billings MD) Post herpetic neuralgia Left ankle tendinitis Impaired fasting glucose Esophageal dysmotility Vitamin D deficiency Acute sinusitis Mass of tongue Depression, major, recurrent, in partial remission Strain of left inguinal region Surgical menopause Essential hypertension COVID-19 Surgical History Status post endometrial ablation History of hysterectomy History of History of colonoscopy Family History Father Hx of diabetes insipidus Hx of skin cancer, basal cell Mental health disorder Mother Family history of high blood pressure Son Substance use disorder Mental health disorder Maternal Grandmother No problems noted. Maternal Uncle Mental health disorder Social History Housing: House Alcohol intake: never Patient Tobacco Use Status: Never used Tobacco e-Cigarette/Vaping Use: Never Used service: No Current occupational status: employed Cognitive needs: No Hearing needs: No Vision needs: No Questionnaire PHQ-9 Over the last 2 weeks, how often have you been bothered by any of the following problems? 1. Little interest or pleasure in doing things: not at all 2. Feeling down, depressed, or hopeless: not at all 3. Trouble falling or staying asleep, or sleeping too much: several days 4. Feeling tired or having little energy: several days 5. Poor appetite or overeating: not at all 6. Feeling bad about yourself - or that you are a failure or have let yourself or your family down: not at all 7. Trouble concentrating on things, such as reading the newspaper or watching television: not at all 8. Moving or speaking so slowly that other people could have noticed. Or the opposite - being so fidgety or restless that you have been moving around a lot more than usual: not at all 9. Thoughts that you would be better off or of hurting yourself in some way: not at all Total score: 2 Depression Screening Interpretation: Negative 12738 - PHQ-9 Billing: Yes Source: Developed by Drs. Vahe Gutierrez, Saima Witt, Josh Kat and colleagues, with an educational kelly from [employer]. Thrive Questionnaire Declines Thrive assessment: No Date Thrive assessed: 03/03/22 I am a: Patient What is your living situation today?: I have a steady place to live Within the past 12 months, did the food you bought not last and you didn't have the money to get more?: Never true Within the past 12 months, did you worry whether your food would run out before you got money to buy more?: Never true Do you have trouble paying for medicines?: No Do you have trouble getting transportation to medical appointments?: No Do you have trouble paying your heating and electricity bill?: No Do you have trouble taking care of your child, family member or friend?: No Do you have trouble with day-to-day activities such as bathing, preparing meals, shopping, managing finances, etc.?: No Are you currently unemployed and looking for a job?: No Are you interested in more education?: No AUDIT C Alcohol Use Questionnaire (AUDIT-C) 1. How often do you have a drink containing alcohol?: Never 3. How often do you have six or more drinks on one occasion?: Never Total Score: 0 MARK-7 AMB Questionnaire MARK-7 Date MARK - 7 assessed: 03/03/22 Feeling nervous, anxious, or on edge: 1 = Several days Not being able to stop or control worryin = Several days Worrying too much about different things: 1 = Several days Trouble relaxin = Not at all Being so restless that it is hard to sit still: 0 = Not at all Becoming easily annoyed or irritable: 0 = Not at all Feeling afraid as if something awful might happen: 0 = Not at all Total MARK-7 score (0-4 normal; 5-9 mild; 10-14 moderate; 15-21 severe): 3 Source: Developed by Drs. Vahe Gutierrez, Saima Witt, Josh Kat and colleagues, with an educational kelly from [employer]. MARK-7 Assessment Billing MARK-7 Assessment Tool: MARK-7 Assessment 46341 Review of Systems Const All systems reviewed & are unremarkable except as noted in HPI and below Physical exam (Primary Care) Vital Signs: Last Vital Signs Pulse 72 03/03/22 15:27 BP 118/72 03/03/22 15:27 Pulse Ox 96 03/03/22 15:27 Oxygen Delivery Method Room Air 03/03/22 15:27 BMI result Body Mass Index 43.0 Tobacco/Smoking Status: Tobacco use Status Tobacco use date assessed 03/03/22 03/03/22 15:32 Patient Tobacco Use Status Never used Tobacco 03/03/22 15:32 e-Cigarette/Vaping Use Never Used 03/03/22 15:32 PHQ-9: PHQ-9 Score PHQ-9: Total score 2 03/03/22 16:13 Depression Screening Interpretation: Negative Thrive Assessment: Date of Thrive Assessment Date Thrive assessed 03/03/22 03/03/22 15:34 Const Other: Alert oriented x3, no acute cardiorespiratory distress noted, ambulatory normal gait HENMT Other: Positive tenderness on palpation over maxillary sinuses, no active nasal drainage, but inferior nasal turbinates are noted to be erythematous and swollen. Eyes General: appearance normal, both eyes and all related structures Neck Neck: Yes full ROM, Yes no lymphadenopathy and Yes supple Resp Effort & Inspection: normal respiratory effort and able to speak in complete sentences Auscultation: clear to auscultation bilaterally Cardio Rhythm: regular rhythm Heart sounds: S1 normal heart sound present and S2 normal heart sound present Assessment and Plan Assessment & Plan (1) Acute sinusitis: Code(s): J01.90 - Acute sinusitis, unspecified Qualifiers: Sinusitis location: maxillary Recurrence: non-recurrent Qualified Code(s): J01.00 - Acute maxillary sinusitis, unspecified Plan: Prescription sent for amoxicillin-potassium clavulanic acid 875-125 mg per tablet to take 1 every 12 hours for 10 days. Return to clinic if no improvement of symptoms after week. Medications: New amoxicillin-pot clavulanate 875-125 mg 1 tab PO Q12H 20 tabs 0RF prednisone 20 mg PO DAILY 5 tabs 0RF 5 days Coding Level of Care Code Est Pt Level 3 (87310) Diagnoses Acute non-recurrent maxillary sinusitis J01.00 Sinusitis location: maxillary Recurrence: non-recurrent Additional Codes MARK-7 Assessment Billing - MARK-7 Assessment Tool: MARK-7 Assessment 24339 ([id number])
[2022-03-03 15:27] VITALS: BP 118/72; PULSE 72; O2SAT 96; BMI 43.0
== END 2022-03-03 16:35 | disposition home or self-care (01) ==
LOC: HO.HMGC 15:18
PROVIDERS: PCP Internal Medicine; Visit Provider Internal Medicine
DX: J01.00 Acute maxillary sinusitis, unspecified (principal)
CPT/HCPCS: 99213; 99499

== ENCOUNTER 2022-08-26 08:09 | Outpatient (AMB) | payer OTHER, SELFPAY ==
--- NOTE | 2022-08-26 08:28 | AM.OFFWIN_ITS ---
Intake Vital Signs 08/26/22 08:33 BP 120/76 Blood Pressure Location Lt brachial Position Sitting Pulse 83 Pulse Source Pulse Oximeter Temp 97.7 F Temp Source Temporal Artery Scan Pulse Oximetry (%) 95 Oxygen Delivery Method Room Air Intake Visit Reasons: EP insect bite/wound recheck ED 08/24 Intake Note: Patient here for bite on right side or torso and would like it rechecked. She also wanted to have her left ankle looked at as she has a chronic issue with it but this past week it has been very painful and has been having swelling. Patient Tobacco Use Status: Never used Tobacco Allergies amoxicillin [AMOXICILLIN] Allergy (Intermediate, Verified 08/26/22 08:34) VOMITING/DIARRHEA, diarrhea/vomiting latex [LATEX] Allergy (Intermediate, Verified 08/26/22 08:34) HIVES sulfamethoxazole [From BACTRIM] Allergy (Intermediate, Verified 08/26/22 08:34) HIVES Doxycycline Hyclate Allergy (Unknown, Verified 08/26/22 08:34) hives and tingling Do you need a note to return to daycare/school/sports/work: No HPI EP insect bite/wound recheck ED 08/24 HPI Details 56-year-old female presents to the office for a sick visit. She has 2 complaints. Patient wants to follow-up on the skin rash she has had last week. She was seen at the emergency room, diagnosed with cellulitis and put on antibiotics. Patient is tolerating the medication well. She has been taking the medications for less than 48 hours. Continues to have the rash with the little induration. No fevers or chills. Patient also has persisting ankle pain for the past year. Mostly the left ankle. Does not recall any fall or injury. There is a minimal swelling. [facility] Medical History (Updated 08/26/22 @ 09:16 by Jonathan Sanderson MD) Acute sinusitis COVID-19 Depression, major, recurrent, in partial remission Essential hypertension Mass of tongue Strain of left inguinal region Surgical menopause Surgical History History of History of colonoscopy History of hysterectomy Status post endometrial ablation Family History Father Hx of diabetes insipidus Hx of skin cancer, basal cell Mental health disorder Mother Family history of high blood pressure Son Substance use disorder Mental health disorder Maternal Grandmother No problems noted. Maternal Uncle Mental health disorder Social History Housing: House Alcohol intake: never Patient Tobacco Use Status: Never used Tobacco e-Cigarette/Vaping Use: Never Used service: No Current occupational status: employed Cognitive needs: No Hearing needs: No Vision needs: No Physical Exam Vital Signs: Last Vital Signs Temp 97.7 F 08/26/22 08:33 Pulse 83 08/26/22 08:33 BP 120/76 08/26/22 08:33 Pulse Ox 95 08/26/22 08:33 Oxygen Delivery Method Room Air 08/26/22 08:33 Skin Other: Right lower back: Erythematous rash with induration. Slight tenderness. Left ankle: Minimal swelling over the lateral malleoli. Full range of motion. Assessment & Plan Assessment & Plan (1) Cellulitis of back: Code(s): L03.312 - Cellulitis of back [any part except buttock] Plan: Continue antibiotics started in the emergency room. The rash looks better compared to her ER visit. (as evidenced by the markings on the skin). Patient was reassured on the ankle sprain. Meloxicam called in. Symptoms do not improve to follow-up here. (2) Sprain of ankle, left: Code(s): S93.402A - Sprain of unspecified ligament of left ankle, initial encounter Coding Level of Care Code Est Pt Level 4 (08851) Diagnoses Cellulitis of back L03.312 Sprain of ankle, left S93.402A
[2022-08-26 08:33] VITALS: BP 120/76; PULSE 83; TEMP 36.5; O2SAT 95
== END 2022-08-26 08:59 | disposition home or self-care (01) ==
PROVIDERS: PCP Internal Medicine; Visit Provider Internal Medicine
DX: L03.312 Cellulitis of back [any part except buttock and flank] (principal); S93.402A Sprain of unspecified ligament of left ankle, initial encounter
CPT/HCPCS: 99214

== ENCOUNTER 2022-12-31 07:34 | Emergency (ER) | payer OTHER, SELFPAY ==
[2022-12-31 07:45] VITALS: BP 149/93; PULSE 71; RESP 20; TEMP 36.8; O2SAT 96; BMI 43.0
--- NOTE | 2022-12-31 07:56 | ED_ITS ---
HPI - Skin/Abscess/Foreign Bdy General Chief complaint: Skin/Abscess/Foreign Body Stated complaint: abscess on abd Time Seen by Provider: 12/31/22 07:44 Source: patient Mode of arrival: ambulatory Limitations: no limitations History of Present Illness HPI narrative: 57-year-old female presents the ER with complaints of redness and swelling to her lower abdomen. Patient reports on Monday she noticed ?a pimple and ?on her lower abdomen. And Monday she had increasing redness and swelling to the area. She was able to express some fluid from the site. She denies any fevers or chills. Related Data Home Medications Medication Instructions Recorded Confirmed aspirin 81 mg tablet,delayed 81 mg PO DAILY 12/25/19 11/10/21 release cholecalciferol (vitamin D3) 125 125 mcg PO DAILY 12/21/20 11/10/21 mcg (5,000 unit) capsule betamethasone, augmented 0.05 % appl topical BID 08/03/21 11/10/21 topical cream sertraline 50 mg tablet 50 mg PO DAILY 11/10/21 11/10/21 famotidine 10 mg tablet 10 mg PO DAILY 03/03/22 Previous Rx's Medication Instructions Recorded diclofenac sodium 1 % topical gel 2 g topical QID ankle pain #100 08/05/21 grams cyclobenzaprine 5 mg tablet 5 mg PO BEDTIME PRN muscle spasm 11/10/21 30 days #30 tabs gabapentin 300 mg capsule 300 mg PO Q8H 30 days #90 caps 11/10/21 trazodone 50 mg tablet 50 mg PO BEDTIME PRN for insomnia 11/17/21 #30 tabs lisinopril 10 mg tablet 10 mg PO DAILY #90 tabs 02/23/22 amoxicillin 875 mg-potassium 1 tab PO Q12H #20 tabs 03/03/22 clavulanate 125 mg tablet prednisone 20 mg tablet 20 mg PO DAILY 5 days #5 tabs 03/03/22 amlodipine 2.5 mg tablet 2.5 mg PO DAILY #90 tabs 07/15/22 meloxicam 15 mg tablet 15 mg PO DAILY #14 tabs 08/26/22 clindamycin HCl 150 mg capsule 150 mg PO TID #21 caps 12/31/22 Allergies Allergy/AdvReac Type Severity Reaction Status Date / Time amoxicillin [AMOXICILLIN] Allergy Intermediate VOMITING/DIARRHEA, Verified 08/26/22 08:34 diarrhea/vomiting latex [LATEX] Allergy Intermediate HIVES Verified 08/26/22 08:34 sulfamethoxazole Allergy Intermediate HIVES Verified 08/26/22 08:34 [From BACTRIM] Doxycycline Hyclate Allergy Unknown hives and Verified 08/26/22 08:34 tingling Review of Systems 2 Review of Systems: Yes all other systems are reviewed and are negative Constitutional: Constitutional: Reports no additional constitutional complaints, Denies body ache(s), Denies chills, Denies fever(s), Denies headache(s) and Denies weakness Eyes: Eyes: Reports no additional eye complaints and Denies change in vision ENT: Reports system reviewed and no additional complaints, except as documented, Denies dizziness, Denies headache(s), Denies nasal congestion, Denies nasal discharge and Denies neck pain Cardiovascular: Cardiovascular: Reports no additional cardiovascular complaints, Denies chest pain, Denies leg edema and Denies dyspnea Respiratory: Respiratory: Reports no additional respiratory complaints, Denies cough and Denies dyspnea Gastrointestinal: Gastrointestinal: Reports no additional gastrointestinal complaints, Denies abdominal pain, Denies diarrhea, Denies nausea and Denies vomiting Genitourinary: Genitourinary: Reports no additional female genitourinary complaints and Denies urinary incontinence Musculoskeletal: Musculoskeletal: Reports no additional musculoskeletal complaints, Denies back pain, Denies arthralgias, Denies joint swelling, Denies neck pain, Denies numbness and Denies tingling Integumentary/Breasts: Skin/Breast: Reports system reviewed and no additional complaints, except as docu, Reports swelling and Denies rash Neurologic: Reports system reviewed and no additional complaints, except as documented, Denies Abnormal speech present, Denies dizziness, Denies headache(s), Denies numbness, Denies tingling and Denies weakness PMFSH Past Medical History Attestation statement: The following information was validated with the patient. Source: old records reviewed and nursing notes reviewed Medical History Acute sinusitis Mass of tongue Depression, major, recurrent, in partial remission Strain of left inguinal region Surgical menopause Essential hypertension COVID-19 Surgical History Status post endometrial ablation History of hysterectomy History of History of colonoscopy Family History Family History Father Hx of diabetes insipidus Hx of skin cancer, basal cell Mental health disorder Mother Family history of high blood pressure Son Substance use disorder Mental health disorder Maternal Grandmother No problems noted. Maternal Uncle Mental health disorder Social History Social History Housing: House Alcohol intake: never Patient Tobacco Use Status: Never used Tobacco Smoked in Last 30 Days: No e-Cigarette/Vaping Use: Never Used Use of substances other than those prescribed or required for medical reasons: No Advance Directives: No Advance Directives Information Provided: Yes service: No Current occupational status: employed Cognitive needs: No Hearing needs: No Vision needs: No Physical Exam 2 Vital Signs: Vital Signs: Last Vital Signs Temp 98.2 F 12/31/22 07:45 Pulse 71 12/31/22 07:45 Resp 20 12/31/22 07:45 BP 149/93 H 12/31/22 07:45 Pulse Ox 96 12/31/22 07:45 O2 Del Method Room Air 12/31/22 07:45 BMI result Body Mass Index 43.0 Const: General: cooperative, healthy appearing, comfortable and no acute distress Orientation/consciousness: patient oriented x3 Limitations: no limitations HEENT: Head: Yes normal to inspection Ears: hearing grossly normal bilaterally General nose exam: Normal external nose present Face and sinus: Yes normal facial exam Mouth: Normal oral and palatal mucosa present Throat: Yes posterior oropharynx normal Eyes: General: appearance normal, both eyes and all related structures P upils: Equal, round and reactive pupils present Neck: Neck: Yes normal visual inspection Chest: Chest palpation & inspection: normal inspection of the chest Resp: Effort & Inspection: normal respiratory effort Auscultation: clear to auscultation bilaterally Cardio: Rate: regular rate Rhythm: regular rhythm Peripheral pulses: P eripheral pulses 2+ throughout GI: Inspection: Yes normal to inspection Palpation (GI): Soft to palpation and nontender Auscultation: normal bowel sounds Back/Spine/Pelvis: Thoracic/Lumbar Spine: thoracic and lumbar spine normal to inspection Skin: Other: NO expressible drainage, induration or fluctuance. General skin exam: no rashes or lesions noted Neuro: General: patient oriented x3, no focal motor deficits and normal sensation to monofilament Cranial nerves: Yes Equal, round and reactive pupils present Cognition (Neuro): normal cognition Speech: No Abnormal speech present Gait exam (Neuro): Normal gait present Motor exam (neuro): 5/5 motor strength present throughout Extrem: General: Yes normal to inspection Medical Decision Making Medical Decision Making MDM Narrative: 57-year-old female presents the ER with complaints of redness and swelling to her lower abdomen.? Patient reports on Monday she noticed ?a pimple and ?on her lower abdomen.? And Monday she had increasing redness and swelling to the area.? She was able to express some fluid from the site.? She denies any fevers or chills. See pictures in chart Patient nontoxic appearing, afebrile. No area conducive for incision and drainage. She does appear to have some mild cellulitis. I will initiate her on oral antibiotics with strict return precautions. Differential Diagnosis Differential Diagnoses: The differential diagnosis associated with the presentation includes Cellulitis Abscess Low concern for necrotizing fasciitis, compartment syndrome Admission/Observation Consideration of admission/observation: Escalation of care including admission/observation considered Mild cellulitis warranting oral antibiotics. No need for IV antibiotics and or admission Tests considered The following testing was considered but not selected: No concern for deeper fluid collection requiring CT abdomen and pelvis Prescription Management I considered prescription management with: Antibiotic Discharge Plan Discharge Clinical Impression: Abscess of skin or subcutaneous tissue Patient Disposition: Home, Self-Care Instructions: Abscess (ED) Additional Instructions: Continue warm compresses Return for worsening symptoms Prescriptions: New clindamycin HCl 150 mg capsule 150 mg PO TID Qty: 21 0RF No Action diclofenac sodium 1 % gel 2 g topical QID Qty: 100 1RF Rx Instructions: apply to single elbow, wrist or hand; for hand includes palm/fingers/back of hand trazodone 50 mg tablet 50 mg PO BEDTIME PRN (Reason: for insomnia) Qty: 30 1RF lisinopril 10 mg tablet 10 mg PO DAILY Qty: 90 3RF amlodipine 2.5 mg tablet 2.5 mg PO DAILY Qty: 90 1RF famotidine 10 mg tablet 10 mg PO DAILY amoxicillin-pot clavulanate 875-125 mg tablet 1 tab PO Q12H Qty: 20 0RF prednisone 20 mg tablet 20 mg PO DAILY 5 Days Qty: 5 0RF meloxicam 15 mg tablet 15 mg PO DAILY Qty: 14 0RF sertraline 50 mg tablet 50 mg PO DAILY gabapentin 300 mg capsule 300 mg PO Q8H 30 Days Qty: 90 0RF Rx Instructions: post-herpetic neuralgia ONLY cyclobenzaprine 5 mg tablet 5 mg PO BEDTIME PRN (Reason: muscle spasm) 30 Days Qty: 30 0RF aspirin 81 mg tablet,delayed release (DR/EC) 81 mg PO DAILY cholecalciferol (vitamin D3) 125 mcg (5,000 unit) capsule 125 mcg PO DAILY betamethasone, augmented 0.05 % cream topical BID Referrals: Shefali Billings MD [Primary Care Provider] - 1 week Interventions: ED Discharge Assessment Last Done: 12/31/22 08:09 Discharge Date/Time: 12/31/22 08:10
== END 2022-12-31 08:10 | disposition home or self-care (01) ==
PROVIDERS: Emergency Provider Emergency Medicine; PCP Internal Medicine
DX: L02.211 Cutaneous abscess of abdominal wall (principal); R10.30 Lower abdominal pain, unspecified; I10 Essential (primary) hypertension; Z79.82 Long term (current) use of aspirin; Z79.899 Other long term (current) drug therapy
CPT/HCPCS: 99283

== ENCOUNTER 2023-02-14 08:12 | Outpatient (AMB) | payer OTHER, SELFPAY ==
[2023-02-14 08:52] VITALS: BP 150/70; PULSE 83; TEMP 36.2; O2SAT 96; BMI 44.9
--- NOTE | 2023-02-14 08:52 | MHC.OFFWIV ---
Intake Vital Signs 02/14/23 08:52 Height 5 ft Weight 230 lb BMI 44.9 BP 150/70 H Blood Pressure Location Lt brachial Position Sitting Pulse 83 Pulse Source Pulse Oximeter Temp 97.1 F Temp Source Temporal Artery Scan Pulse Oximetry (%) 96 Oxygen Delivery Method Room Air Intake Visit Reasons: EP chest congestion/tight [id number] Intake Note: pt is here today for chest congestion tight started 1 week ago Patient Tobacco Use Status: Never used Tobacco Allergies amoxicillin [AMOXICILLIN] Allergy (Intermediate, Verified 02/14/23 09:03) VOMITING/DIARRHEA, diarrhea/vomiting latex [LATEX] Allergy (Intermediate, Verified 02/14/23 09:03) HIVES sulfamethoxazole [From BACTRIM] Allergy (Intermediate, Verified 02/14/23 09:03) HIVES Doxycycline Hyclate Allergy (Unknown, Verified 02/14/23 09:03) hives and tingling Medication List - Last Reconciled 02/14/23 by Jonathan Sanderson MD amlodipine 2.5 mg PO DAILY amoxicillin-pot clavulanate 875-125 mg 1 tab PO Q12H aspirin 81 mg PO DAILY betamethasone, augmented 0.05 % appl topical BID cholecalciferol (vitamin D3) 125 mcg PO DAILY clindamycin HCl 150 mg PO TID cyclobenzaprine 5 mg PO BEDTIME PRN 30 days diclofenac sodium 1% 2 grams topical QID famotidine 10 mg PO DAILY gabapentin 300 mg PO Q8H 30 days lisinopril 10 mg PO DAILY meloxicam 15 mg PO DAILY prednisone 20 mg PO DAILY 5 days sertraline 50 mg PO DAILY trazodone 50 mg PO BEDTIME PRN Do you need a note to return to daycare/school/sports/work: Yes HPI EP chest congestion/tight [id number] HPI Details Patient presents for a sick visit. Reporting symptoms of sinus congestion, sore throat and difficulty swallowing. Low-grade fever. No family member is sick. No recent travel. Patient reports symptoms of malaise and fatigue. Patient is reporting symptoms of wheezing. 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 [facility] Medical History Acute sinusitis Mass of tongue Depression, major, recurrent, in partial remission Strain of left inguinal region Surgical menopause Essential hypertension COVID-19 Surgical History Status post endometrial ablation History of hysterectomy History of History of colonoscopy Family History Father Hx of diabetes insipidus Hx of skin cancer, basal cell Mental health disorder Mother Family history of high blood pressure Son Substance use disorder Mental health disorder Maternal Grandmother No problems noted. Maternal Uncle Mental health disorder Social History Housing: House Alcohol intake: never Patient Tobacco Use Status: Never used Tobacco e-Cigarette/Vaping Use: Never Used service: No Current occupational status: employed Cognitive needs: No Hearing needs: No Vision needs: No Physical Exam Vital Signs: Last Vital Signs Temp 97.1 F 02/14/23 08:52 Pulse 83 02/14/23 08:52 BP 150/70 H 02/14/23 08:52 Pulse Ox 96 02/14/23 08:52 Oxygen Delivery Method Room Air 02/14/23 08:52 BMI result Body Mass Index 44.9 Const General: cooperative and healthy appearing Nutritional Appearance: well nourished Orientation/consciousness: patient oriented x3 Limitations: no limitations HEENT Head: Yes normal to inspection Eyes General: appearance normal, both eyes and all related structures Neck Neck: Yes normal visual inspection Chest Chest palpation & inspection: normal palpation of entire chest wall Resp Other: Scattered wheeze bilaterally. Effort & Inspection: normal respiratory effort Neuro General: patient oriented x3 Assessment & Plan Assessment & Plan (1) Acute bronchitis: Code(s): J20.9 - Acute bronchitis, unspecified Plan: Antibiotics ordered. Increase fluid intake. Tylenol for aches and pains. If symptoms worsen, follow-up here for a recheck. Coding Level of Care Code Est Pt Level 3 (16693) Diagnoses Acute bronchitis J20.9
== END 2023-02-14 09:22 | disposition home or self-care (01) ==
PROVIDERS: PCP Internal Medicine; Visit Provider Internal Medicine
DX: J20.9 Acute bronchitis, unspecified (principal)
CPT/HCPCS: 99213

== ENCOUNTER 2023-03-24 07:55 | Outpatient (REF) | payer OTHER, SELFPAY ==
[2023-03-24 12:03] LABS: Alanine Aminotransferase 28 U/L (0-31); Anion Gap 13 (12-20); Aspartate Amino Transferase 21 U/L (5-31); Blood Urea Nitrogen 18 mg/dL (9-16); Calcium 9.5 mg/dL (8.4-10.2); Carbon Dioxide 25 mmol/L (22-29); Chloride 104 mmol/L (96-108); Cholesterol 206 mg/dL (<200); Estimated Glomerular Filt Rate > 60; Glucose Fasting 116 mg/dL (60-99); HDL Cholesterol 56 mg/dL (>40); LDL Cholesterol Calculated 125 mg/dL (<100); Potassium 4.1 mmol/L (3.3-5.1); Sodium 138 mmol/L (135-145); Triglycerides 129 mg/dL (<150)
== END 2023-03-24 07:56 | disposition home or self-care (01) ==
LOC: HO.HMGCLDS 07:55
PROVIDERS: PCP Internal Medicine; Visit Provider Internal Medicine
DX: I10 Essential (primary) hypertension (principal); E55.9 Vitamin D deficiency, unspecified
CPT/HCPCS: 36415; 80048; 80061; 82306; 84450; 84460

== ENCOUNTER 2023-03-29 10:31 | Outpatient (AMB) | payer OTHER, SELFPAY ==
--- NOTE | 2023-03-29 10:52 | ...WebTmpl.AM.BPCHK ---
Intake Intake Visit Reasons: Blood pressure check Allergies amoxicillin [AMOXICILLIN] Allergy (Intermediate, Verified 02/14/23 09:03) VOMITING/DIARRHEA, diarrhea/vomiting latex [LATEX] Allergy (Intermediate, Verified 02/14/23 09:03) HIVES sulfamethoxazole [From BACTRIM] Allergy (Intermediate, Verified 02/14/23 09:03) HIVES Doxycycline Hyclate Allergy (Unknown, Verified 02/14/23 09:03) hives and tingling Coding
[2023-03-29 10:53] VITALS: BP 124/66; PULSE 67; O2SAT 96; BMI 43.7
--- NOTE | 2023-03-29 10:53 | A.OFFPC_ITS ---
Vital Signs 03/29/23 10:53 Height 5 ft Weight 224 lb BMI 43.7 BP 124/66 Blood Pressure Location Rt brachial Position Sitting Pulse 67 Pulse Source Pulse Oximeter Pulse Oximetry (%) 96 Oxygen Delivery Method Room Air Intake Visit Reasons: Blood pressure check Intake Note: Pt is here today for her b/p check Allergies amoxicillin [AMOXICILLIN] Allergy (Intermediate, Verified 03/29/23 11:18) VOMITING/DIARRHEA, diarrhea/vomiting latex [LATEX] Allergy (Intermediate, Verified 03/29/23 11:18) HIVES sulfamethoxazole [From BACTRIM] Allergy (Intermediate, Verified 03/29/23 11:18) HIVES Doxycycline Hyclate Allergy (Unknown, Verified 03/29/23 11:18) hives and tingling Medication List - Last Reconciled 03/29/23 by Shefali Billings MD amlodipine 2.5 mg PO DAILY aspirin 81 mg PO DAILY betamethasone, augmented 0.05 % appl topical BID cholecalciferol (vitamin D3) 125 mcg PO DAILY diclofenac sodium 1% 2 grams topical QID gabapentin 300 mg PO Q8H 30 days lisinopril 10 mg PO DAILY meloxicam 15 mg PO DAILY sertraline 50 mg PO DAILY trazodone 50 mg PO BEDTIME PRN Tobacco use date assessed: 03/29/23 Dental Screening Dental Screen Date: 03/29/23 Did you have a dental visit in the last 12 months?: Yes Did you have a dental problem in the last 6 months where you did not have access to dental care?: Yes Was dental information given to patient?: Patient has dentist HPI Blood pressure check HPI Details 57-year-old lady here today for follow-u p on her hypertension. She is on lisinopril 10 mg once a day in a.m. and amlodipine was added on last visit 2.5 mg daily in the morning as well. She has been compliant with healthy eating habits, has lost some weight, blood pressure has been stable and better controlled on present treatment. She takes gabapentin 300 mg 3 times a day for post- herpetic neuralgia, complains of feeling very tired when she takes his medication would like to decrease her dose. [facility] Medical History (Updated 03/29/23 @ 11:31 by Shefali Billings MD) Post herpetic neuralgia Left ankle tendinitis Impaired fasting glucose Esophageal dysmotility Vitamin D deficiency Acute sinusitis Mass of tongue Depression, major, recurrent, in partial remission Strain of left inguinal region Surgical menopause Essential hypertension COVID-19 Surgical History Status post endometrial ablation History of hysterectomy History of History of colonoscopy Family History Father Hx of diabetes insipidus Hx of skin cancer, basal cell Mental health disorder Mother Family history of high blood pressure Son Substance use disorder Mental health disorder Maternal Grandmother No problems noted. Maternal Uncle Mental health disorder Social History Housing: House Alcohol intake: never Patient Tobacco Use Status: Never used Tobacco e-Cigarette/Vaping Use: Never Used service: No Current occupational status: employed Cognitive needs: No Hearing needs: No Vision needs: No Questionnaire PHQ-9 Over the last 2 weeks, how often have you been bothered by any of the following problems? 1. Little interest or pleasure in doing things: not at all 2. Feeling down, depressed, or hopeless: not at all 3. Trouble falling or staying asleep, or sleeping too much: not at all 4. Feeling tired or having little energy: not at all 5. Poor appetite or overeating: not at all 6. Feeling bad about yourself - or that you are a failure or have let yourself or your family down: not at all 7. Trouble concentrating on things, such as reading the newspaper or watching television: not at all 8. Moving or speaking so slowly that other people could have noticed. Or the opposite - being so fidgety or restless that you have been moving around a lot more than usual: not at all 9. Thoughts that you would be better off or of hurting yourself in some way: not at all Total score: 0 Depression Screening Interpretation: Negative Depression Screening Done: Yes 76693 - PHQ-9 Billing: Yes Source: Developed by Drs. Vahe Gutierrez, Saima Witt, Josh Kat and colleagues, with an educational kelly from [employer]. Thrive Questionnaire Date Thrive assessed: 03/29/23 I am a: Patient What is your living situation today?: I have a steady place to live Within the past 12 months, did the food you bought not last and you didn't have the money to get more?: Never true Within the past 12 months, did you worry whether your food would run out before you got money to buy more?: Never true Do you have trouble paying for medicines?: No Do you have trouble getting transportation to medical appointments?: No Do you have trouble paying your heating and electricity bill?: No Do you have trouble taking care of your child, family member or friend?: No Do you have trouble with day-to-day activities such as bathing, preparing meals, shopping, managing finances, etc.?: No Are you currently unemployed and looking for a job?: No Are you interested in more education?: No THRIVE Score: 0 AUDIT C Alcohol Use Questionnaire (AUDIT-C) 1. How often do you have a drink containing alcohol?: Monthly or less 2. How many drinks containing alcohol do you have on a typical day when you are drinking?: 1 or 2 3. How often do you have six or more drinks on one occasion?: Never Total Score: 1 MARK-7 AMB Questionnaire MARK-7 Date MARK - 7 assessed: 03/03/22 Source: Developed by Drs. Vahe Gutierrez, Saima Witt, Josh Kat and colleagues, with an educational kelly from [employer]. Review of Systems Const Denies headache(s) and Denies weakness Eyes Denies change in vision ENT Denies dizziness, Denies headache(s) and Denies nasal congestion Card Denies chest pain, Denies lightheadedness and Denies dyspnea Resp Denies chest congestion, Denies cough and Denies dyspnea GI Denies abdominal pain, Denies change in bowel habits and Denies heartburn Musc Details: Occasional pain on the front of her left ankle joint, resolve spontaneously after several minutes Skin/Breast Denies lesions and Denies rash Neuro Denies dizziness, Denies headache(s) and Denies weakness Psych Reports no additional complaints Endo Reports no additional complaints Kermit/Lymph Denies easy bruising Aller/Immun Denies seasonal rhinorrhea Physical exam (Primary Care) Vital Signs: Last Vital Signs Pulse 67 03/29/23 10:53 BP 124/66 03/29/23 10:53 Pulse Ox 96 03/29/23 10:53 Oxygen Delivery Method Room Air 03/29/23 10:53 BMI result Body Mass Index 43.7 Tobacco/Smoking Status: Tobacco use Status Tobacco use date assessed 03/29/23 03/29/23 10:55 Patient Tobacco Use Status Never used Tobacco 03/29/23 10:55 e-Cigarette/Vaping Use Never Used 03/29/23 10:55 PHQ-9: PHQ-9 Score PHQ-9: Total score 0 03/29/23 11:31 Depression Screening Interpretation: Negative Thrive Assessment: Date of Thrive Assessment Date Thrive assessed 03/29/23 03/29/23 11:04 Const General: comfortable and no acute distress Orientation/consciousness: patient oriented x3 HENMT Head: Yes normocephalic Face and sinus: Yes face symmetric Mouth: Normal oral and palatal mucosa present, oropharynx normal and moist mucous membranes Eyes General: appearance normal, both eyes and all related structures Neck Neck: Yes full ROM, Yes no lymphadenopathy and Yes supple Resp Effort & Inspection: normal respiratory effort and no cough Cardio Rate: regular rate Rhythm: regular rhythm Heart sounds: S1 normal heart sound present and S2 normal heart sound present Skin General skin exam: no rashes or lesions noted Neuro General: patient oriented x3, tone normal and moves all extremities Extrem General: Yes full ROM, Yes no joint enlargement, Yes no clubbing, cyanosis or edema and Yes no calf tenderness Assessment and Plan Assessment & Plan (1) Essential hypertension: Code(s): I10 - Essential (primary) hypertension Plan: Blood pressure stable controlled now on amlodipine and lisinopril. Recent fasting labs were discussed with patient, (2) Left ankle tendinitis: Code(s): M77.52 - Other enthesopathy of left foot and ankle Plan: Advised to try massaging diclofenac gel to affected area to 2 3 times a day as needed. (3) Depression, major, recurrent, in partial remission: Code(s): F33.41 - Major depressive disorder, recurrent, in partial remission (4) Impaired fasting glucose: Code(s): R73.01 - Impaired fasting glucose Plan: Your fasting blood sugars elevated above 100 mg/dL. Impaired glucose metabolism O2 at risk for developing diabetes mellitus type 2, as well as heart attack and stroke later on. Lifestyle changes at just weight loss, healthy eating habits, and regular exercise are important, and can prevent the progression to diabetes (5) Post herpetic neuralgia: Code(s): B02.29 - Other postherpetic nervous system involvement Plan: Will decrease gabapentin dosing to 100 mg 1 tablet 3 times a day Medications: Changed From gabapentin post-herpetic neuralgia ONLY 300 mg PO Q8H 30 days 90 caps 0RF To gabapentin post-herpetic neuralgia ONLY 100 mg PO Q8H 30 days 90 caps 3RF Refilled lisinopril 10 mg PO DAILY 90 tabs 4RF amlodipine 2.5 mg PO DAILY 90 tabs 4RF Coding Level of Care Code Est Pt Level 4 (03819) Diagnoses Essential hypertension I10 Left ankle tendinitis M77.52 Depression, major, recurrent, in partial remission F33.41 Impaired fasting glucose R73.01 Post herpetic neuralgia B02.29
== END 2023-03-29 11:58 | disposition home or self-care (01) ==
PROVIDERS: PCP Internal Medicine; Visit Provider Internal Medicine
DX: I10 Essential (primary) hypertension (principal); M77.52 Other enthesopathy of left foot and ankle; F33.41 Major depressive disorder, recurrent, in partial remission; R73.01 Impaired fasting glucose; B02.29 Other postherpetic nervous system involvement
CPT/HCPCS: 99214

== ENCOUNTER 2023-09-13 12:31 | Outpatient (AMB) | payer OTHER, SELFPAY ==
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
[2023-09-13 12:34] VITALS: BP 120/74; PULSE 74; O2SAT 96; BMI 43.5
== END 2023-09-13 13:39 | disposition home or self-care (01) ==
PROVIDERS: PCP Internal Medicine; Visit Provider Internal Medicine
DX: Z00.00 Encounter for general adult medical examination without abnormal findings (principal); I10 Essential (primary) hypertension; R73.01 Impaired fasting glucose; F33.41 Major depressive disorder, recurrent, in partial remission
CPT/HCPCS: 99396

== ENCOUNTER 2023-10-02 07:39 | Outpatient (REF) | payer OTHER, SELFPAY ==
[2023-10-02 11:07] LABS: Cholesterol 231 mg/dL (<200); Glucose Fasting 110 mg/dL (60-99); HDL Cholesterol 63 mg/dL (>40); LDL Cholesterol Calculated 138 mg/dL (<100); Triglycerides 154 mg/dL (<150)
[2023-10-02 11:21] LABS: Estimated Average Glucose 103 mg/dL; Hemoglobin A1c % 5.2 % (<6.0)
== END 2023-10-02 07:40 | disposition home or self-care (01) ==
LOC: HO.HMGCLDS 07:39
PROVIDERS: PCP Internal Medicine; Visit Provider Internal Medicine
DX: R73.01 Impaired fasting glucose (principal); I10 Essential (primary) hypertension; Z13.220 Encounter for screening for lipoid disorders
CPT/HCPCS: 36415; 80061; 82947; 83036

== ENCOUNTER 2024-01-06 08:48 | Emergency (ER) | payer OTHER, SELFPAY ==
[2024-01-06 08:55] VITALS: BP 159/54; PULSE 67; RESP 18; TEMP 36.5; O2SAT 97; BMI 44.3
--- NOTE | 2024-01-06 09:19 | ED_ITS ---
HPI - General Adult General Chief complaint: General Medical Stated complaint: l ear pain Time Seen by Provider: 01/06/24 09:09 Source: patient Mode of arrival: ambulatory Limitations: no limitations History of Present Illness ED Provider: ALLISON CASTRO PA-C HPI narrative: 58 year old female with pmhx significant for HTN, MDD, and GERD presents to the ED today for evaluation of throat discomfort x3 days. Reports the discomfort is localized to her left neck/ throat and began radiating to her left ear yesterday. Endorses mild odynophagia without dysphagia. No changes to voice. Endorses chronic dry cough secondary to lisinopril use. No sputum production. No known sick contacts. Denies drainage from the ear or hearing changes. Denies fever, chills, N/V, abdominal pain. Vaccinations UTD. Related Data Home Medications ?Medication ?Instructions ?Recorded ?Confirmed cholecalciferol (vitamin D3) 125 125 mcg PO DAILY 12/21/20 02/14/23 mcg (5,000 unit) capsule betamethasone, augmented 0.05 % appl topical BID 08/03/21 02/14/23 topical cream lorazepam 0.5 mg tablet mg PO DAILY PRN 09/13/23 sertraline 50 mg tablet 100 mg PO DAILY 09/13/23 trazodone 50 mg tablet 50 mg PO BEDTIME PRN for insomnia 09/13/23 Previous Rx's ?Medication ?Instructions ?Recorded diclofenac sodium 1 % topical gel 2 g topical QID ankle pain #100 08/05/21 grams amlodipine 2.5 mg tablet 2.5 mg PO DAILY #90 tabs 03/29/23 gabapentin 100 mg capsule 100 mg PO Q8H 30 days #90 caps 03/29/23 lisinopril 10 mg tablet 10 mg PO DAILY #90 tabs 03/29/23 clindamycin HCl 300 mg capsule 300 mg PO TID 10 days #30 caps 01/06/24 prednisone 20 mg tablet 40 mg (2 x 20 mg) PO DAILY 5 days 01/06/24 #10 tabs Allergies Allergy/AdvReac Type Severity Reaction Status Date / Time amoxicillin [AMOXICILLIN] Allergy Intermediate VOMITING/DIARRHEA, Verified 01/06/24 08:59 diarrhea/vomiting latex [LATEX] Allergy Intermediate HIVES Verified 01/06/24 08:59 sulfamethoxazole Allergy Intermediate HIVES Verified 01/06/24 08:59 [From BACTRIM] Doxycycline Hyclate Allergy Unknown hives and Verified 01/06/24 08:59 tingling Review of Systems Review of Systems: Constitutional: No fever, chills, fatigue, night sweats, weight changes ENT/Mouth: No ear pain, hearing loss, nasal congestion, sinus pain, rhinorrhea, +sore throat, +odynophagia, No dysphagia Eyes: No eye pain, swelling, redness, vision changes, discharge Cardio: No chest pain, palpitations, WOOD, orthopnea, peripheral edema Pulm: No SOB, cough, sputum, wheezing, dyspnea, hemoptysis GI: No nausea, vomiting, hematemesis, abdominal pain, diarrhea, constipation, hematochezia, melena : No irregular bleeding, dysuria, frequency, urgency, hesitancy, hematuria, flank pain MSK: No back pain, neck pain, joint pain, myalgias Skin: No lesions, rashes Neuro: No weakness, numbness, paresthesias, LOC, dizziness, headache All other systems reviewed and are negative. [facility] Past Medical History Attestation statement: The following information was validated with the patient. Source: old records reviewed and nursing notes reviewed Medical History Post herpetic neuralgia Left ankle tendinitis Impaired fasting glucose Esophageal dysmotility Vitamin D deficiency Acute sinusitis Mass of tongue Depression, major, recurrent, in partial remission Strain of left inguinal region Surgical menopause Essential hypertension COVID-19 Surgical History Status post endometrial ablation History of hysterectomy History of History of colonoscopy Family History Family History Father Hx of diabetes insipidus Hx of skin cancer, basal cell Mental health disorder Mother Family history of high blood pressure Son Substance use disorder Mental health disorder Maternal Grandmother No problems noted. Maternal Uncle Mental health disorder Social History Social History Housing: House Alcohol intake: never Patient Tobacco Use Status: Never used Tobacco Smoked in Last 30 Days: No e-Cigarette/Vaping Use: Never Used Use of substances other than those prescribed or required for medical reasons: No Advance Directives: No Advance Directives Information Provided: No Do you have a plan to hurt others: No Plan service: No Current occupational status: employed Cognitive needs: No Hearing needs: No Vision needs: No Physical Exam ED Vital Signs: Vital Signs - 24 hr 01/06/24 08:55 Temperature 97.7 F Pulse Rate 67 Respiratory Rate 18 Blood Pressure 159/54 H Pulse Oximetry 97 Oxygen Delivery Method Room Air BMI result Body Mass Index 44.3 Vital signs stable, afebrile Const General: cooperative, healthy appearing, comfortable, no acute distress, alert and awake Orientation/consciousness: patient oriented x3 Limitations: no limitations HENMT Other: + posterior oropharynx erythematous, no edema, uvula is midline, no tonsilar exudates or peritonsillar masses, controlling secretions and speaking in complete sentences. tongue wnl. no swelling or masses. Head: Yes normal to inspection, Yes normocephalic and Yes atraumatic Ears: hearing grossly normal bilaterally, external ears normal, TM's normal bilaterally, EAC's normal, mastoids normal and no periauricular adenopathy General nose exam: Normal external nose present and No nasal discharge present Face and sinus: Yes normal facial exam and Yes sinuses nontender Eyes General: appearance normal, both eyes and all related structures Pupils: Equal, round and reactive pupils present Neck Other: + no cervical, submandibular or submental LAD. Neck: Yes normal visual inspection and Yes full ROM Resp Effort & Inspection: normal respiratory effort and able to speak in complete sentences Auscultation: clear to auscultation bilaterally Cardio Rate: regular rate Rhythm: regular rhythm GI Inspection: Yes normal to inspection Palpation (GI): Soft to palpation and nontender Skin General skin exam: no rashes or lesions noted Neuro General: patient oriented x3, gait normal and moves all extremities Cranial nerves: Yes Equal, round and reactive pupils present Extrem General: Yes normal to inspection Course Course Course Narrative: negative for mono and strep. no concern for deep soft tissue infection. exam consistent with pharyngitis. given history, will cover with clindamycine. Patient has remained stable throughout ED visit today. Discussed worrisome signs and symptoms and when to return to the ED. All questions answered at this time. Patient is agreeable with disposition and stable for discharge. Medications Administered Discontinued Medications Generic Name Dose Route Start Last Admin Trade Name Chris PRN Reason Stop Dose Admin Dexamethasone Sodium Phosphate 10 mg 01/06/24 09:30 01/06/24 09:39 Dexamethasone Sod Phosphate 10 Mg/Ml Vial IVPUSH 01/06/24 09:31 10 mg ONCE ONE Administration Medical Decision Making Medical Decision Making [facility] Narrative: 58 year old female with pmhx significant for HTN, MDD, and GERD presents to the ED today for evaluation of throat discomfort x3 days. Hypertensive, vitals otherwise wnl. no hypoxic. on exam, posterior oropharynx erythematous, no edema, uvula is midline, no tonsilar exudates or peritonsillar masses, controlling secretions and speaking in complete sentences. tongue wnl. no swelling or masses. Differential diagnosis includes strep, pharyngitis, mono. Unlikely [employer], retropharyngeal abscess, dental abscess, epiglottis, acute respiratory distress, pneumonia. Plan for strep/ mono testing. Differential Diagnosis Differential Diagnoses: The differential diagnosis associated with the presentation includes as above. Admission/Observation Not indicated Lab Data [facility] Lab Attestation statement: I reviewed the patient's lab results. as above Labs: Lab Results 01/06/24 Range/Units 09:36 Monoscreen Negative (Negative) S. pyogenes GrpA BRANDIN Negative (Negative) External Record Review External record reviewed: Inpatient record Tests considered The following testing was considered but not selected: I considered ordering CT soft tissue neck however no concern for deep soft tissue infection or mass. Prescription Management I considered prescription management with: Pain Medication and Antibiotic (clindamycin ) Chronic Conditions Patient?s care impacted by: Hypertension Social Determinants Patient?s care significantly limited by Social Determinants of Health including: Other Social Determinant of Health Critical Care Time Critical Care Time Critical Care Time: No Discharge Plan Discharge Clinical Impression: Pharyngitis Patient Disposition: Home, Self-Care Instructions: Pharyngitis (ED), Upper Respiratory Infection (ED) Additional Instructions: You were evaluated in the ED today for throat discomfort/ ear pain. You tested negative for strep throat and mono. You were treated with a steroid in ED today. Prednisone is a steroid that has been sent to your pharmacy. Take this as directed over the next 5 days. Clindamycin as an antibiotic that has been sent to your pharmacy. Take this as prescribed over the next 10 days. As discussed, please follow-up with ENT. Call them to make an appointment. They will not call you. Return with new or worsening symptoms. In the case of an emergency call 911. Prescriptions: New clindamycin HCl 300 mg capsule 300 mg PO TID 10 Days Qty: 30 0RF prednisone 20 mg tablet 40 mg PO DAILY 5 Days Qty: 10 0RF No Action diclofenac sodium 1 % gel 2 g topical QID Qty: 100 1RF Rx Instructions: apply to single elbow, wrist or hand; for hand includes palm/fingers/back of hand trazodone 50 mg tablet 50 mg PO BEDTIME PRN (Reason: for insomnia) Rx Instructions: 50-100 mg lorazepam 0.5 mg tablet PO DAILY PRN sertraline 50 mg tablet 100 mg PO DAILY amlodipine 2.5 mg tablet 2.5 mg PO DAILY Qty: 90 4RF lisinopril 10 mg tablet 10 mg PO DAILY Qty: 90 4RF gabapentin 100 mg capsule 100 mg PO Q8H 30 Days Qty: 90 3RF Rx Instructions: post-herpetic neuralgia ONLY cholecalciferol (vitamin D3) 125 mcg (5,000 unit) capsule 125 mcg PO DAILY betamethasone, augmented 0.05 % cream topical BID Referrals: Shefali Billings MD [Primary Care Provider] - Osmani Vo [Physician] - Interventions: ED Discharge Assessment Last Done: 01/06/24 11:12 Discharge Date/Time: 01/06/24 11:12 Print Language: Omani
[2024-01-06] MEDS: dexAMETHasone sod phosphate 10 MG/ML VIAL IVPUSH (09:39)
[2024-01-06 09:56] LABS: IDNOW Serial# 08D9AD1C; Strep A Nucleic Acid Negative (Negative)
[2024-01-06 10:17] LABS: Monotest Negative (Negative)
[2024-01-06 10:36] VITALS: BP 147/59; PULSE 61; RESP 16; TEMP 36.6; O2SAT 98
[2024-01-06 11:12] VITALS: BP 147/59; PULSE 61; RESP 16; TEMP 36.6; O2SAT 98
== END 2024-01-06 11:12 | disposition home or self-care (01) ==
PROVIDERS: Physician Assistant Medical; Emergency Provider Emergency Medicine; PCP Internal Medicine
DX: J02.9 Acute pharyngitis, unspecified (principal); I10 Essential (primary) hypertension
CPT/HCPCS: 36415; 86308; 87651; 96374; 99284; J1100

== ENCOUNTER 2024-09-19 12:55 | Outpatient (AMB) | payer OTHER, SELFPAY ==
--- OUTSIDE RECORDS SUMMARY | 2024-09-19 12:58 | XMS_ITS | Patient Health Record ---
Author Organization [facility] dunia Starbuck Address [address] [place] [address] Care Team Providers Care Cow Rider Name Role Phone Manuelito PALACIO, Shefali Davison Primary Care Provider Un available Black, Tanya Unavailable [phone] Allergies Allergen (clinical drug ingredient) Drug/Non Drug Allergy documented on EMR Reaction Allergy Type Onset Date Status amoxicillin Amoxicillin diarrhea, vomiting Drug Allergy Active sulfamethoxazole / trimethoprim Bactrim rash Drug Allergy Active latex Unknown Drug Allergy Active Reason For Referral No Information Medications Medication SIG (Take, Route, Fr equency, Duration) Notes Start Date End Date Status Lisinopril 10 MG Oral; Duration: 60 Unknown Lidocaine Viscous 2 % Mouth/Throat; Duration: 3 Unknown Ambien 10 MG 1 tablet at bedtime as needed Orally Once a day Active Feldene 20 MG 1 capsule with food Orally Once a day; Duration: 30 day(s) 06/09/2015 Active Caltrate 600 Active Lisinopril 10 MG 1 tablet Orally Once a day; Duration: 30 day(s) Active Ibuprofen 200 MG 1 tablet as needed O rally every 6 hrs Active Social History Tobacco use other than smoking: Question Answer Notes Are you an other tobacco user? No Problems No Known Problems Plan Of Treatment Pending Test Test Name Order Date [id number] TENDON SHEATH/LIGAMENT 0 10/31/2012 Insurance Providers Payer Name Payer Address Payer Phone Subscriber Number Group Number Insured Name Patient Relationship to Insured Coverage Start Date Coverage End Date [facility] [address] [place] [address] [phone] [id number] Bernice Graham Self - patient is the insured Medical (General) History Medical History History ICD Code hypertension anemia back, hip, knee pain headaches/migraines chicken pox vascular grafts Surgical History Surgery Date(Month/Year) section uterine sugery tubal ligation hysterectomy
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
[2024-09-19 13:06] VITALS: BP 132/82; PULSE 67; RESP 15; TEMP 36.7; O2SAT 97; BMI 44.9
== END 2024-09-19 13:59 | disposition home or self-care (01) ==
LOC: HO.HMCC 12:56
PROVIDERS: PCP Internal Medicine; Visit Provider Internal Medicine
DX: Z00.00 Encounter for general adult medical examination without abnormal findings (principal); I10 Essential (primary) hypertension; E66.01 Morbid (severe) obesity due to excess calories; Z68.41 Body mass index [BMI] 40.0-44.9, adult; K21.9 Gastro-esophageal reflux disease without esophagitis; F33.41 Major depressive disorder, recurrent, in partial remission; R73.01 Impaired fasting glucose; Z78.9 Other specified health status

== ENCOUNTER → 2024-09-19 12:55 | Outpatient (BNVA) | payer OTHER, SELFPAY | PROVIDERS: PCP Internal Medicine; Visit Provider Internal Medicine | DX: Z00.01 Encounter for general adult medical examination with abnormal findings (principal); I10 Essential (primary) hypertension; E78.5 Hyperlipidemia, unspecified; L30.9 Dermatitis, unspecified; K21.9 Gastro-esophageal reflux disease without esophagitis; F33.41 Major depressive disorder, recurrent, in partial remission; R73.01 Impaired fasting glucose; E66.01 Morbid (severe) obesity due to excess calories; Z78.9 Other specified health status; Z68.41 Body mass index [BMI] 40.0-44.9, adult; Z79.899 Other long term (current) drug therapy | CPT/HCPCS: 96127 ==

== ENCOUNTER 2024-10-04 08:04 | Outpatient (REF) | payer OTHER, SELFPAY ==
--- NOTE | ~2024-10-04 | MM_ITS ---
EXAMINATION: MM SCREENING DIGITAL BREAST TOMOSYNTHESIS, BILATERAL CLINICAL INFORMATION: Screening. Asymptomatic. COMPARISON: Mammography: Comparison is made with available priors TECHNIQUE: Digital breast mammography with tomosynthesis is performed in both the craniocaudal and mediolateral oblique views along with computer-aided detection (CAD). FINDINGS: The breasts are almost entirely fatty (ACR BI-RADS breast composition Category a). There are no significant masses, abnormal calcifications, or other abnormalities. MM/MM tomosynthesis screening BI IMPRESSION: No mammographic evidence of malignancy. ASSESSMENT: BI-RADS BI-RADS 1 - Negative RECOMMENDATION: Routine annual mammography screening. 1 year F/U This examination should not preclude the clinical evaluation of a suspicious palpable abnormality. This patient's information was entered into a reminder system with a target due date for their next mammogram. Electronically signed by: Suad Covington DO 10/08/2024 12:45 PM EDT
--- OUTSIDE RECORDS SUMMARY | 2024-10-04 08:08 | XMS_ITS | Patient Health Record ---
Author Organization [facility] dunia Thelma Address [address] [place] [address] Care Team Providers Care Manager Personnel Selection Name Role Phone Manuelito PALACIO, Shefali Davison Primary Care Provider Un available Black, Tanya Unavailable [phone] Allergies Allergen (clinical drug ingredient) Drug/Non Drug [...] Treatment Pending Test Test Name Order Date 20425,[id number] TENDON SHEATH/LIGAMENT 0 10/31/2012 Insurance Providers Payer Name Payer Address Payer Phone Subscriber Number Group Number Insured Name Patient Relationship to Insured Coverage Start Date Coverage End Date [facility] [address] [place] [address] [id number] Bernice Graham Self - patient is the insured Medical (General) History Medical History History ICD Code hypertension anemia back, hip, knee pain headaches/migraines chicken pox vascular grafts Surgical History Surgery Date(Month/Year) section uterine sugery tubal ligation hysterectomy
== END 2024-10-04 08:05 | disposition home or self-care (01) ==
LOC: HO.MAMMO 08:04
PROVIDERS: PCP Internal Medicine; Visit Provider Internal Medicine
DX: Z12.31 Encounter for screening mammogram for malignant neoplasm of breast (principal)
CPT/HCPCS: 77063; 77067

== ENCOUNTER → 2024-10-04 08:15 | Outpatient (BNV) | payer OTHER, SELFPAY | PROVIDERS: PCP Internal Medicine; Visit Provider Internal Medicine | DX: Z12.31 Encounter for screening mammogram for malignant neoplasm of breast (principal) | CPT/HCPCS: 77063; 77067 ==

== ENCOUNTER 2024-12-19 09:12 | Outpatient (REF) | payer OTHER, SELFPAY ==
--- OUTSIDE RECORDS SUMMARY | 2024-12-19 10:07 | XMS_ITS | Patient Health Record ---
Author Organization [facility] dunia [place]wood Address [address] [place] [address] Care Team Providers Care Physician Intensivist Name Role Phone Manuelito PALACIO, Shefali Davison Primary Care Provider Un available Black, Tanya Unavailable [phone] Allergies Allergen (clinical drug ingredient) Drug/Non Drug [...] Treatment Pending Test Test Name Order Date [id number] TENDON SHEATH/LIGAMENT 0 10/31/2012 Insurance Providers Payer Name Payer Address Payer Phone Subscriber Number Group Number Insured Name Patient Relationship to Insured Coverage Start Date Coverage End Date [facility] [address] [place] [address] [phone] [id number] Bernice Graham Self - patient is the insured Medical (General) History Medical History History ICD Code hypertension anemia back, hip, knee pain headaches/migraines chicken pox vascular grafts Surgical History Surgery Date(Month/Year) section uterine sugery tubal ligation hysterectomy
--- OUTSIDE RECORDS SUMMARY | 2024-12-19 10:07 | XMS_ITS | Data Portability ---
Author Organization LAURO Finch [facility], [id number] Address [address] [place] [address] Care Team Providers Care Silk Hanger Name Role Phone [facility] Primary Care Provider Assessment No assessment recorded. Plan of Treatment Reminders Order Date Submit Date Provider Last Modified By Organization Details Last Modified Time Details Appointments None recorded. Lab None recorded. Referral None recorded. Procedures None recorded. Surgeries None recorded. Imaging None recorded. Medication Orders azithromyci n 250 mg tablet 2022 023 KIMMY [id number], [address] [place], [address], 09:20:47 albuterol sulfate HFA 90 mcg/actuati on aerosol inhaler 2022 023 terrell [email or web address] [id number], [address] [place], [address], 09:23:59 Patient TargetsNo targets recorded. Patient Instructions Encounter Date Encounter Id Patient Instructions Last Modified By Organization Details Last Modified Time 02/19/2022 [id number] ear infection (otitis media): care instructions [email or web address] Not available 02/19/2022 09:21:04 perforated eardrum: care instructions [email or web address] Not available 02/19/2022 09:21:04 keeping ears dry : care instructions [email or web address] Not available 02/19/2022 09:21:04 upper respirator y infection (cold): care instructions [email or web address] Not available 02/19/2022 09:20:45 Reason for Referral None Reported. Problems Name Problem SNOMED Code Status Onset Date Resolution Date Notes Provider Name and Address Organization Details Recorded Time Hypertensive disorder 66293204 Active 2022 NORMAN SUAD null, PA - [facility] 3 08:41:04 Anxiety 04394182 Active 2022 NORMAN SUAD null, PA - [facility] 3 08:41:25 Problem Notes None recorded. Medical Equipment None Reported. Allergies Allergen ID Allergen Name Allergen Category Reaction Reaction Severity Criticality Documentation Date Start Date Code Code System Note Provider Name and Address Organization Details Recorded Time 83678 amoxicill in medicatio n vomiting Not available Not available 02/19/2022 723 RxNorm NORMAN SUAD null, PA - [facility] 3 08:39:07 94470 Bactrim medicatio n hives Not available Not available 02/19/2022 62186 9 RxNorm NORMAN SUAD null, PA - [facility] 3 08:39:25 37822 doxycycli ne Not available other Not available Not available 02/19/2022 3640 RxNorm NORMAN SUAD null, PA - [facility] 3 08:39:39 83433 latex environme nt,medica tion other Not available Not available 02/19/2022 92101 91 RxNorm NORMAN SUAD null, PA - [facility] 3 08:39:52 Medications Name Sig Start Date Stop Date Status Note LastModified by Organization Details LastModified Time trazodone 50 mg tablet TAKE 1 TO 2 TABLETS BY MOUTH AT BEDTIME NEEDED FOR INSOMNIA active Not Available Not Available No t Available azithromyci n 250 mg tablet TAKE 2 TABLETS BY MOUTH TODAY, THEN TAKE 1 TABLET DAILY FOR 4 DAYS active Not Available Not Available No t Available meloxicam 15 mg tablet TAKE 1 TABLET BY MOUTH EVERY DAY 02/19 completed Not Available Not Available Not Available prednisone 20 mg tablet TAKE 1 TABLET BY MOUTH DAILY FOR 5 DAYS active Not Available Not Available No t Available betamethaso ne, augmented 0.05 % topical cream APPLY TO AFFECTED AREA TWICE A DAY ON FOOT UNTIL IMPROVED 02/19 completed Not Available Not Available Not Available amlodipine 2.5 mg tablet TAKE 1 TABLET BY MOUTH EVERY DAY active Not Available Not Available No t Available acyclovir 800 mg tablet TAKE 1 TAB ORALLY 5 TIMES A DAY FOR 7 DAYS SPACE EVENLY DURING WAKING HOURS 02/19 completed Not Available Not Available Not Available lisinopril 10 mg tablet TAKE 1 TABLET BY MOUTH EVERY DAY active Not Available Not Available No t Available gabapentin 300 mg capsule TAKE 1 CAPSULE BY MOUTH EVERY 8 HOURS NEEDED FOR PAIN active Not Available Not Available No t Available albuterol sulfate HFA 90 mcg/actuati on aerosol inhaler INHALE 2 PUFFS EVERY 4 HOURS NEEDED FOR 7 DAYS active Not Available Not Available No t Available sertraline 50 mg tablet TAKE 1 TABLET BY MOUTH EVERY DAY active Not Available Not Available No t Available amoxicillin 875 mg-potassiu m clavulanate 125 mg tablet TAKE 1 TABLET BY MOUTH EVERY 12 HOURS active Not Available Not Available No t Available escitalopra m 20 mg tablet TAKE 1 TABLET BY MOUTH EVERY DAY 02/19 completed Not Available Not Available Not Available cyclobenzap rine 5 mg tablet TAKE 1 TABLET BY MOUTH AT BEDTIME NEEDED FOR MUSCLE SPASM 02/19 completed Not Available Not Available Not Available diclofenac 1 % topical gel PLEASE SEE ATTACHED FOR DETAILED DIRECTION S active Not Available Not Available No t Available Vitals Date Recorded Body height Body mass index (BMI) Body weight Pain severity - 0-10 verbal numeric rating [Score] - Reported Oxygen saturation Oxygen saturation in Arterial blood by Pulse oximetry Heart rate Respiratory rate Body temperature Systolic And Diastolic Provider Name and Address Organization Details Last Updated DateTime 3 152.4 cm 41 kg/m2 73377.4 g 7 96 % 96 % 77 /min 16 /min 98.7 [degF] 135/84 mm[Hg] NORMAN RESTREPO [facility] 3 08:44:19 Social History Question Answer Notes LastModified by Zing Details LastModified Time Tobacco Smoking Status Never Smoker NORMAN simon [place] - [facility] 02/19/2022 08:42:18 Have You Recently Traveled Abroad? No Information not available 02/19/2022 Sex: Unknown Functional Status Question Answer Note LastModified by Organizat ion Details LastModified Time Do you use any illicit or recreational drugs? No Information not available 02/19/2022 Do you or have you ever used any other forms of tobacco or nicotine? No Information not available 02/19/2022 What is your level of alcohol consumption? Occasional Information not available 02/19/2022 Are you currently employed? Yes Information not available 02/19/2022 Mental Status None recorded. Family History Relationship Description Onset Age of this Age Resolved Age Notes LastModified by Organization Details LastModified Time Father Hypertensive disorder Not available 2022 08:41:54 Father Malignant neoplasm of skin Not available 2022 08:42:04 Mother Hypertensive disorder Not available 2022 08:41:54 Medical History No medical history recorded. Gynecological HistoryNo gynecological history recorded. Obstetrics History GPAL:G 0 P 0 0 0 0 Immunizations Vaccine Type Date Status Note Provider Nam e and Address Organization Details Recorded Time Influenza, split virus, quadrivalent, PF 12/10/2021 completed NORMAN simon PA - [facility] 02/19/2022 08:38:39 COVID-19, mRNA, LNP-S, bivalent, PF, 50 mcg/0.5 mL or 25mcg/0.25 mL dose 12/10/2021 completed NORMAN simon PA - [facility] 02/19/2022 08:38:39 Past Encounters Encounter ID Performer Location Encounter Start Date Encounter Closed Date Diagnosis/Indication Diagnosis SNOMED-CT Code Diagnosis ICD10 Code Diagnosis IMO Codes Diagnosis Note [id number] [facility] [place] [address] 02/11/2015 08:14:10 02/11/2015 08:58:19 [id number] [address] [place] [address] 02/18/2018 14:21:35 02/18/2018 15:13:56 [id number] [address] [facility] [place] [address] 09/22/2017 16:08:18 09/22/2017 17:33:56 [id number] LAURO WELSH [address] [facility] [place] [address] 02/19/2022 08:23:27 02/19/2022 09:26:19 Acute right otitis media 389178368 H66.91 Acute uppe r respiratory infection 03530167 J06.9 Health Concerns Section Related Observation LastModified by Organization Detai ls LastModified Time None Recorded Concern Status LastModified by Organization Details LastModified Time None Recorded Advance Directives Directive None Recorded Payers Insurance Date Sequence Insurance Name Policy Number Policy Stinson Covered Member ID Stinson Member ID Guarantor Name 02/19/2022 1 [facility] [id number] Bernice Graham [id number] Bernice Frenchs Notes Date Note Type Note Provider Name and Address Organization Details Recorded Time 02/19/2022 text/html Bernice is a 56 yo F with PMH of HTN and anxiety here for evaluation of productive cough onset 5 days ago. Yesterday after a coughing fit had sudden right ear pain followed by drainage of yellow fluid. 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 Tested negative for covid yesterday at work. No fevers. + right ear pain and drainage. Not taking anything for cough due to HTN and usually states OTC meds increase her BP. Denies vertigo, tinnitus or syncope. LAURO MORIN [facility] [place], [address], [place] - [facility] 02/19/2022 09:24:02 OBGyn Episode No OBEpisode recorded.
[2024-12-19 10:51] LABS: Alanine Aminotransferase 23 U/L (0-31); Anion Gap 12 (12-20); Aspartate Amino Transferase 20 U/L (5-31); Blood Urea Nitrogen 14 mg/dL (9-16); Calcium 9.1 mg/dL (8.4-10.2); Carbon Dioxide 27 mmol/L (22-29); Chloride 107 mmol/L (96-108); Cholesterol 214 mg/dL (<200); Estimated Glomerular Filt Rate > 60; HDL Cholesterol 53 mg/dL (>40); Potassium 4.2 mmol/L (3.3-5.1); Sodium 142 mmol/L (135-145); Triglycerides 99 mg/dL (<150)
== END 2024-12-19 09:13 | disposition home or self-care (01) ==
LOC: HO.HMGCLDS 09:12
PROVIDERS: PCP Internal Medicine; Visit Provider Internal Medicine
DX: Z13.21 Encounter for screening for nutritional disorder (principal); I10 Essential (primary) hypertension; K21.9 Gastro-esophageal reflux disease without esophagitis; R73.01 Impaired fasting glucose; F33.41 Major depressive disorder, recurrent, in partial remission
CPT/HCPCS: 36415; 80048; 80061; 82306; 83036; 84450; 84460